=== PATIENT | female | born 1980 | race Caucasian/White ===

== ENCOUNTER → 2019-10-24 07:48 | Outpatient (CLI) | payer OTHER, SELFPAY ==
--- NOTE | ~2019-10-24 | US_ITS ---
EXAMINATION: US right upper quadrant DATE: 10/24/2019 08:12 INDICATION: Right upper quadrant abdominal pain. TECHNIQUE: Multiple grayscale and Doppler ultrasound images of the abdomen were obtained. COMPARISON: None FINDINGS: The visualized portions of the head, body, and tail of the pancreas are normal. The liver i s normal without focal lesion. No liver surface nodularity. There is normal flow in main portal vein. The gallbladder is normal in size. No gallstones or gallbladder wall thickening. There was no sonogr aphic Mauricio sign. The common duct is normal and measures 3 mm. IMPRESSION: 1. Normal right upper quadrant ultrasound. Reviewed, dictated and finalized at location A.
== END ==
PROVIDERS: PCP Physician Assistant; Visit Provider Physician Assistant
DX: R10.11 Right upper quadrant pain (principal)
CPT/HCPCS: 76705

== ENCOUNTER 2019-11-26 09:58 | Emergency (ER) | payer OTHER, SELFPAY ==
--- NOTE | ~2019-11-26 | CT_ITS ---
EXAMINATION: CT abdomen pelvis w con DATE: 11/26/2019 10:58 INDICATION: Lower right abdominal pain TECHNIQUE: Computed tomography (CT) of the abdomen and pelvis was performed with 100 mL Omnipaque-350 intravenous contrast. Automated exposure control and iterative reconstruction technique were employe d. The dose-length product was 311.79 mGy-cm. COMPARISON: None FINDINGS: Lung bases are clear. Heart size is normal. No pericardial or pleural effusion. Liver, gallbladder, s pleen, pancreas, bilateral adrenal glands and kidneys are normal. Small bowel and appendix are normal . There is wall thickening and inflammatory stranding centered about a diverticulum in the mid sigmoi d colon consistent with diverticulitis. No abscess or free intraperitoneal gas or fluid. Bladder, ant everted uterus and bilateral adnexa are unremarkable. No pathologically enlarged abdominal or pelvic lymphadenopathy. Mild lower lumbar dextrocurvature with mild spondylosis. IMPRESSION: 1. Radiographically uncomplicated sigmoid diverticulitis. Reviewed, dictated and finalized at location A.
[2019-11-26 10:10] VITALS: BP 130/81; PULSE 90; RESP 16; TEMP 36.7; O2SAT 98
[2019-11-26 10:31] LABS: Basophils Percent Auto 0.2 % (0.2-1.2); Eosinophils Percent Auto 0.3 % (0-4.4); Hematocrit 41.4 % (37.0-47.0); Hemoglobin 14.7 g/dL (12.0-15.0); Immature Granulocyte Absolute 0.03 K/mm3 (0.00-0.031); Immature Granulocyte Percent A 0.3 % (0-0.5); Lymphocytes Absolute Auto 0.91 K/mm3 (0.9-3.2); Lymphocytes Percent Auto 8.8 % (18.3-44.2); Mean Corpuscular HGB Conc 35.5 g/dl (32-36); Mean Corpuscular Volume 95.8 fl (80-100); Mean Platelet Volume 10.4 fl (7.4-10.4); Monocytes Absolute Auto 0.4 K/mm3 (0.1-0.6); Monocytes Percent Auto 3.9 % (2.6-8.5); Neutrophils Percent Auto 86.5 % (45.5-73.1); Platelet Count Result 193 k/mm3 (150-375); Red Blood Count 4.32 M/mm3 (4.2-5.4); Red Cell Distribution Width 12.2 % (11.5-14.5); White Blood Count 10.4 K/mm3 (4.5-10.0)
--- NOTE | 2019-11-26 10:34 | ED.ABDPAIN ---
HPI - Abdominal Pain General Chief Complaint: Abdominal Pain Stated Complaint: abd pain Time Seen by Provider: 11/26/19 10:08 Source: patient Mode of arrival: ambulatory Limitations: no limitations History of Present Illness HPI narrative: This is a 39-year-old female that presents the emergency department for right lower quadrant abdominal pain x2 days. Reports started having vague right sided abdominal pain on Tuesday night associated with some nausea. Reports on Tuesday she played in a golf tournament and pain was exacerbated by walking around and getting in and out of the cart. Reports pain continued today which prompted her to be seen. Denies fever, vomiting, diarrhea, dysuria, hematuria. Related Data Home Medications Medication Instructions Recorded Confirmed Control 11/26/19 Allergies Allergy/AdvReac Type Severity Reaction Status Date / Time No Known Allergies Allergy Verified 11/26/19 10:13 Review of Systems Review of Systems: Narrative: CONSTITUTIONAL: Denies fever GASTROINTESTINAL: Reports abdominal pain, nausea. Denies vomiting, or diarrhea. GENITOURINARY: Denies dysuria or hematuria. SKIN: Denies rash MUSCULOSKELETAL: Denies back pain All systems reviewed & are unremarkable except as noted in HPI and below PMFSH Past Medical History Medical History (Updated 11/26/19 @ 11:10 by Leyda Mascorro PA-C) No active medical problems Surgical History Surgical History (Updated 11/26/19 @ 10:41 by Leyda Mascorro PA-C) History of Social History Social History (Updated 11/26/19 @ 10:41 by Leyda Mascorro PA-C) Substance use: never Gender identity (if verbalized by the patient): Female Exam Narrative: Exam Narrative: GENERAL: Well-appearing, well-nourished, and in no acute distress. HEAD: Normocephalic, atraumatic. EYES: EOMI. CHEST: Clear to auscultation. No respiratory distress. No wheezes rales or rhonchi HEART: Regular rate and rhythm. No murmur heard. Normal peripheral pulses. ABDOMEN: Soft, nondistended, normal active bowel sounds. Tender to palpation of the RLQ, without guarding. No CVA tenderness EXTREMITIES: Normal range of motion. No edema. SKIN: Warm, dry, no rash. NEURO: No focal deficits. Alert and oriented x3. PSYCH: Normal mood and affect Course Vital Signs Vital signs: Vital Signs Temperature 98.1 F 11/26/19 10:10 Pulse Rate 90 11/26/19 10:10 Respiratory Rate 16 11/26/19 10:10 Blood Pressure 130/81 11/26/19 10:10 Pulse Oximetry 98 11/26/19 10:10 Temperature 98.1 F 11/26/19 10:10 Pulse Rate 95 11/26/19 10:35 Respiratory Rate 18 11/26/19 10:35 Blood Pressure 130/81 11/26/19 10:10 Pulse Oximetry 98 11/26/19 10:35 MDM - Abdominal Pain MDM Narrative Medical decision making narrative: Patient presents to the emergency department for lower abdominal pain x2 days. She is afebrile and nontoxic-appearing. CBC with mild leukocytosis to 10.4 with left shift. Metabolic panel without concerning changes. UA without evidence of infection. CT scan of the abdomen and pelvis shows uncomplicated sigmoid diverticulitis. Patient is stable and tolerating p.o. intake without any vomiting. [place] appropriate for further outpatient evaluation. She will be started on oral antibiotics. She is to follow-up with primary care doctor. She was given warnings to return to the ER Lab Data Attestation: I reviewed the patient's lab results. Result diagrams: 11/26/19 10:10 11/26/19 10:10 Labs: Lab Results 11/26/19 11/26/19 11/26/19 Range/Units 10:10 10:10 10:10 WBC 10.4 H (4.5-10.0) K/mm3 RBC 4.32 (4.2-5.4) M/mm3 Hgb 14.7 (12.0-15.0) g/dL Hct 41.4 (37.0-47.0) % MCV 95.8 (80-100) fl MCH 34.0 (26-34) pg MCHC 35.5 (32-36) g/dl RDW 12.2 (11.5-14.5) % Plt Count 193 (150-375) k/mm3 MPV 10.4 (7.4-10.4) fl Immature Gran % (Auto) 0.3 (0-0.5) % Neut % (Auto
[2019-11-26 10:35] VITALS: PULSE 95; RESP 18; O2SAT 98
[2019-11-26 10:35] LABS: Add Urine Microscopic? YES; Appearance Urine Clear (Clear); Bacteria Urine Trace /hpf; Bilirubin Urine Negative (Negative); Blood Urine Negative (Negative); Color Urine Yellow (Yellow); Glucose Urine UA Negative (Negative); Ketones Urine Negative (Negative); Leukocyte Esterase Ur 1+ LEU/UL (Negative); Mucus Urine Rare /lpf; Nitrate Urine Negative (Negative); Protein Urine Negative (Negative); Specific Grav Ur 1.019 (1.001-1.035); Squamous Epithelial Cell Urine Few /hpf (Few); Urobilinogen Urine Negative mg/dL (<2.0); WBC Urine 0-3 /hpf
[2019-11-26 10:43] LABS: Alanine Aminotransferase 14 U/L (4-35); Albumin Level 4.2 g/dL (3.5-5.1); Alkaline Phosphatase 46 U/L (38-126); Anion Gap 7 mmol/L (8-16); Aspartate Amino Transferase 20 U/L (14-36); Bilirubin,Total 0.9 mg/dL (0.2-1.3); Blood Urea Nitrogen 14 mg/dL (7-17); Calcium 8.6 mg/dL (8.4-10.2); Carbon Dioxide 26 mmol/L (22-30); Chloride 104 mmol/L (98-107); Estimated CRCL calculation 71 ml/min; Estimated Glomerular Filt Rate > 60; Glucose 121 mg/dL (65-105); Lipase 42 U/L (23-300); Potassium 3.7 mmol/L (3.4-5.0); Sodium 137 mmol/L (137-145)
--- NOTE | 2019-11-26 10:59 | PC.NURSE ---
report given to bird dye at this time, pt just returning from ct at this time. she has assumed pt care.
[2019-11-26 11:29] VITALS: BP 122/78; PULSE 78; RESP 18; O2SAT 99
== END 2019-11-26 11:30 | disposition home or self-care (01) ==
PROVIDERS: Emergency Provider Emergency Medicine; PCP Physician Assistant
DX: K57.32 Diverticulitis of large intestine without perforation or abscess without bleeding (principal)
CPT/HCPCS: 36415; 74177; 80053; 81001; 81025; 83690; 85025; 99284; Q9967

== ENCOUNTER → 2020-08-27 15:26 | Outpatient (CLI) | payer OTHER, SELFPAY ==
--- NOTE | ~2020-08-27 | MM_ITS ---
EXAMINATION: MM screening bill BI w thomas HISTORY: Screening mammogram TECHNIQUE: Craniocaudal and mediolateral oblique 3-D tomosynthesis images were obtained and synthetic 2-D images were generated. CAD analysis was submitted and interpreted. COMPARISON: No prior mammogram is available for comparison at this institution. BREAST PARENCHYMAL COMPOSITION: The breasts are heterogeneously dense, which may obscure small masses . FINDINGS: There is no evidence of suspicious mass, calcification, or architectural distortion to sugg est malignancy in either breast. There has been no suspicious interval change. IMPRESSION: 1. No mammographic evidence of malignancy. 2. Recommend routine screening mammography in one year. BI-RADS Category 1: Negative Reviewed, dictated and finalized at location A.
== END ==
PROVIDERS: PCP Physician Assistant; Visit Provider Obstetrics & Gynecology
DX: Z12.31 Encounter for screening mammogram for malignant neoplasm of breast (principal)
CPT/HCPCS: 77063; 77067

== ENCOUNTER → 2021-09-02 16:45 | Outpatient (CLI) | payer OTHER, SELFPAY ==
--- NOTE | ~2021-09-02 | MM_ITS ---
EXAMINATION: MM screening bill BI w thomas HISTORY: Screening mammogram TECHNIQUE: Craniocaudal and mediolateral oblique 3-D tomosynthesis images were obtained and synthetic 2-D images were generated. CAD analysis was submitted and interpreted. COMPARISON: No prior mammogram is available for comparison at this institution. BREAST PARENCHYMAL COMPOSITION: 08/27/2020 bilateral screening mammogram FINDINGS: There is no evidence of suspicious mass, calcification, or architectural distortion to sugg est malignancy in either breast. There has been no suspicious interval change. IMPRESSION: 1. No mammographic evidence of malignancy. 2. Recommend routine screening mammography in one year. BI-RADS Category 1: Negative Reviewed, dictated and finalized at location A.
== END ==
PROVIDERS: PCP Physician Assistant; Visit Provider Obstetrics & Gynecology
DX: Z12.31 Encounter for screening mammogram for malignant neoplasm of breast (principal)
CPT/HCPCS: 77063; 77067

== ENCOUNTER → 2022-08-25 07:44 | Outpatient (CLI) | payer OTHER, SELFPAY ==
--- NOTE | ~2022-08-25 | MMUS_ITS ---
EXAMINATION: MM diagnostic bill BI w thomas, US breast RT limited HISTORY: Right axillary swelling TECHNIQUE: Craniocaudal, mediolateral, and mediolateral oblique 3-D tomosynthesis images of the breas ts were performed and synthetic 2-D images were generated. CAD analysis was submitted and interpreted . High resolution limited right breast ultrasound was performed. COMPARISON: 09/02/2021, 08/27/2020 BREAST PARENCHYMAL COMPOSITION: The breasts are heterogeneously dense, which may obscure small masses . FINDINGS: MAMMOGRAPHIC FINDINGS: No suspicious mass, calcification, or architectural distortion are identified in either breast to sug gest malignancy. There has been no suspicious interval change. No mammographic correlate is identifie d for the reported right axillary swelling. ULTRASOUND: There is no evidence of focal abnormal solid or cystic mass in the vicinity of the patient's right ax illary swelling. IMPRESSION: 1. No specific mammographic or sonographic correlate is identified for the patient's reported right a xillary swelling Further evaluation at this time should be based on clinical assessment. Continued fo llow-up physical examination is recommended. 2. Recommend routine screening mammography in one year. BI-RADS Category 1: Negative Reviewed, dictated and finalized at location A. IMPRESSION: 1. No specific mammographic or sonographic correlate is identified for the meagan ent's reported right axillary swelling Further evaluation at this time should b e based on clinical assessment. Continued follow-up physical examination is rec ommended. 2. Recommend routine screening mammography in one year. BI-RADS Category 1: Negative
== END ==
PROVIDERS: PCP Physician Assistant; Visit Provider Obstetrics & Gynecology
DX: N64.4 Mastodynia (principal)
CPT/HCPCS: 76642; 77062; 77066; G0279

== ENCOUNTER 2024-03-05 12:03 | Outpatient (CLI) | payer OTHER, SELFPAY ==
--- NOTE | ~2024-03-05 | MM_ITS ---
EXAMINATION: MM screening bill BI w thomas HISTORY: Screening TECHNIQUE: Craniocaudal and mediolateral oblique 3-D tomosynthesis images were obtained and synthetic 2-D images were generated. CAD analysis was submitted and interpreted. COMPARISON: Comparison to multiple prior studies sequentially, with oldest reviewed study dated 08/27. BREAST PARENCHYMAL COMPOSITION: Dense: The breasts are heterogeneously dense, which may obscure small masses FINDINGS: There is no evidence of suspicious mass, calcification, or architectural distortion to sugg est malignancy in either breast. There has been no suspicious interval change. IMPRESSION: 1. No mammographic evidence of malignancy. 2. Recommend routine screening mammography in one year. BI-RADS Category 1: Negative Reviewed, dictated and finalized at location B. 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
== END 2024-03-05 12:04 | disposition home or self-care (01) ==
LOC: MICIMG 12:04
PROVIDERS: PCP Obstetrics & Gynecology; Visit Provider Obstetrics & Gynecology
DX: Z12.31 Encounter for screening mammogram for malignant neoplasm of breast (principal)
CPT/HCPCS: 77063; 77067

== ENCOUNTER 2024-10-12 00:34 | Day surgery (SDC) | payer OTHER, SELFPAY ==
--- NOTE | 2024-10-08 11:15 | PC.NURSE ---
Report to the Outpatient Waiting Room, entrance under the green pavilion located off [facility], at time __10 AM on date _10/12/24 . Planned Procedure Time: __1200 NOON .? Time changes happen often and if your time is changed the preop area will call you the afternoon before. - You and your visitor will be asked to self-screen and do not enter if you have any COVID symptoms. Please call surgeon if you need to reschedule. - A mask is optional within the hospital at this time. Patients may have clear liquids (water, carbonated beverages, clear teas, apple juice) until 3 hours prior to surgery ( 9AM) with a maximum of 20 ounces. - No food from midnight until time of surgery and no smoking, or chewing tobacco (or any form of nicotine). No chewing gum, candy or mints. - Take only the following medications with a SIP of water on the morning of surgery: NONE DO NOT STOP ANY OF YOUR OTHER PRESCRIPTION MEDICATIONS PRIOR TO SURGERY EXCEPT THE FOLLOWING Hold all vitamins and supplements for 3 days per anesthesiologist. Medications to discontinue per physician NONE Please no make-up, nail amharic, hairspray, perfume, deodorant, or body powder the day of surgery.? No jewelry (including any body piercings) or valuables the day of surgery, leave them at home.? Please take a shower or bath the night before, or the morning of, surgery with an antibacterial soap.? Wear comfortable, loose fitting clothing.? Children are encouraged to wear pajamas. - Jewelry must be removed prior to entering the operating room.? Rings and piercings that are not removed may be cut off. - The hospital will not accept responsibility for valuables.? - Please leave all valuables, including medications, at home the day of surgery. If you are going home after surgery, a licensed driver material handler must drive you home.? - NO public transportation without another adult if you receive anesthesia. - We recommend that an adult stay with you for 24 hours following discharge. - We also recommend that you do not drive, make important decision, drink alcoholic beverages, or take any drugs that were not prescribed by your health care provider for at least 24 hours after your discharge time. For Pediatric surgeries, we recommend two adults accompany the child home. Follow any additional instructions given to you from your surgeon. Telephone instructions given to ____PATIENT and asked if any additional questions and then verbalized understanding. Patient advised to call surgeon office or pre surgery nurse liaison [phone] if any additional questions.
[2024-10-08 11:19] VITALS: BMI 28.3
--- NOTE | 2024-10-11 07:39 | PM.IMHP ---
H&P: HPI History of Present Illness Date/Time: 10/11/24 07:39 Chief Complaint: AUB Narrative: Echo is a 44yo [id number], who presents for AUB. She had an EMB due to persistent AUB 06/2024. She has been on BC forever, but started having breast issues in August 2023 and stopped the BC (was most recently on ed, previously loestrin). She has also previously been on Prozac for PMS and wasn't sure if that was helping so she also stopped that. She had a very heavy cycle in Feb 2023 (son was having heart surgery) and we then started Ana Maria. Her cycles have been regular, slightly heavy one day, but nothing like in Feb. But started have BTB this month (06/2024); commonly her period ends for a couple days, then when she's on the new pill pack, will spot for a couple more days. But again in September 2024 the AUB restarted; has tried doing pills q12h which helped initially but then the bleeding just became severe this weekend with clots. Review of Systems Constitutional: Constitutional: Denies chills, Denies fever(s) and Denies headache(s) Eyes: Eyes: Denies change in vision ENT: Denies dizziness and Denies headache(s) Cardiovascular: Cardiovascular: Denies chest pain and Denies dyspnea Respiratory: Respiratory: Denies cough and Denies dyspnea Gastrointestinal: Gastrointestinal: Denies abdominal pain and Denies change in stool character Genitourinary: Genitourinary: Reports abnormal menses, Reports menorrhagia, Reports dysmenorrhea, Denies pelvic pain, Denies vaginal discharge, Denies vaginal odor and Denies vaginal pruritus Neurologic: Denies dizziness and Denies headache(s) Psychiatric: Psychiatric: Denies anxiety and Denies depression [facility] Past Medical History Medical History (Updated 10/11/24 @ 07:40 by Zena Cabral MD) Family attended structured diabetes education program No active medical problems Surgical History Surgical History H/O bilateral salpingectomy History of Family History Family History Mother Ovarian cancer Other Acute myocardial infarction Dementia Heart disease Hypertension Social History Social History Smoking status: Never smoker Alcohol intake: current Drinks per week: 2 Alcohol use details: socially Substance use: never Substance use type: does not use Lack of Transportation: No Lack of Food: Never True Current Housing: I Have Housing Concerned About Future Housing: No Difficulty Paying Gas/Electric Bills: No Difficulty Paying for Meds: No Currently Unemployed: No Education: Master's Degree or Higher Difficulty w/ Childcare or Family Care: No Living arrangements: with family Occupation/Education: occupation 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 Gender identity (if verbalized by the patient): Female Sexual Orientation (if Verbalized by the Patient): Straight or Heterosexual Spiritual care concerns: No Meds Home Medications and Allergies Home Medications ?Medication ?Instructions ?Recorded ?Confirmed ?Type norethindrone acetate 1 mg-ethinyl 1 tablet PO DAILY #84 tabs 06/20/24 10/08/24 Rx estradiol 20 mcg tablet (Junel) fluoxetine 10 mg capsule 10 mg PO HS 10/08/24 10/08/24 History multivitamin 1 tablet PO DAILY 10/08/24 10/08/24 History Allergies Allergy/AdvReac Type Severity Reaction Status Date / Time No Known Allergies Allergy Verified 10/08/24 11:08 Exam Const: General: cooperative, healthy appearing, comfortable and no acute distress Orientation/consciousness: patient oriented x3 Resp: Effort & Inspection: normal respiratory effort Cardio: Rate: regular rate GI: Inspection: normal to inspection GI Palp: No abdominal tenderness and Yes Soft to palpation : Other: deferred to OR Skin: General skin exam: normal color Neuro: General: patient oriented x3 Extrem: General: normal to inspection Psych: Appearance: grossly normal Affect: normal affect Attitude: cooperative Assessment and Plan Assessment and plan (1) Abnormal uterine bleeding (AUB): Code(s): N93.9 - Abnormal uterine and vaginal bleeding, unspecified Status: Acute 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
--- OUTSIDE RECORDS SUMMARY | 2024-10-12 00:37 | XMS_ITS | Encounter Summary ---
Author Organization [facility] Address [address] [place] [address] Care Team Providers Care Health Education Specialist Name Role Phone Unavailable Primary Care Provider Unavailabl e Encounter Details Date Type Department Care Team (Latest Contact Info) Description 08/12/2006 Inpatient Historical HIS PATIENT IN A BED Amanda Scott MD [address] [facility] [address] [place] [address] Normal Delivery (Primary Dx) Social History Tobacco Use Types Packs/Day Years Used Date Smoking Tobacco: Never Assessed Comments Unknown Sex and Gender Information Value Date Recorded Sex Assigned at Not on file Legal Sex Female 3:42 AM [employer] Gender Identity Not on file Sexual Orientation Not on file documented as of this encounter Plan of Treatment Not on file documented as of this encounter Visit Diagnoses Diagnosis Normal delivery- Primary documented in this encounter
--- OUTSIDE RECORDS SUMMARY | 2024-10-12 00:37 | XMS_ITS | Data Portability ---
[facility] Address [address] [place] [address] Assessment No assessment recorded. Plan of Treatment Reminders Order Date Submit Date Provider Last Modified By Organization Details Last Modified Time Details Appointments None recorded. Lab TSH + free T4, serum 024 [facility], [address], [place], [address], 4 03:36:51 lipid panel, serum 024 024 [facility], [address], [place], [address], 4 03:36:50 CMP, serum or plasma 024 [facility], [address], [place], [address], 4 03:36:51 CBC w/ auto diff 024 [facility], [address], [place], [address], 4 03:36:53 vitamin B12 + folate, serum or blood 024 024 [facility], [address], [place], [address], 4 03:36:52 HbA1c (hemoglob in A1c), blood 024 024 [facility], [address], [place], [address], 03:36:52 Referral None recorded. Procedures None recorded. Surgeries None recorded. Imaging None recorded. Medication Orders None recorded. Patient TargetsNo targets recorded. Patient InstructionsNo instructions recorded. Reason for Referral None Reported. Results Created Date Observation Date Name Description Value Unit Range Abnormal Flag Note LastModifiedBy Organization Detail LastModifiedTime 11/30/19 24 12/01/2023 LIPID PANEL W/ CHOL/ HDL RATIO cholesterol, total 172 mg/dL 100-19 9 Not Available [facility] ([facility]) [address], [place], [address], 12/01/2023 03:36:50 11/30/19 24 12/01/2023 LIPID PANEL W/ CHOL/ HDL RATIO triglyceride s 139 mg/dL 0-149 Not Available [facility] ([facility]) [address] [place], [address], 12/01/2023 03:36:50 11/30/19 24 12/01/2023 LIPID PANEL W/ CHOL/ HDL RATIO HDL cholesterol 67 mg/dL >39 Not Available [facility] ([facility]) [address] [place], [address], 12/01/2023 03:36:50 11/30/19 24 12/01/2023 LIPID PANEL W/ CHOL/ HDL RATIO VLDL cholesterol eleazar 24 mg/dL 5-40 Not Available [facility] ([facility]) [address] [place], [address], 12/01/2023 03:36:50 11/30/19 24 12/01/2023 LIPID PANEL W/ CHOL/ HDL RATIO LDL chol calc ([facility]) 81 mg/dL 0-99 Not Available [facility] ([facility]) [address] [place], [address], 12/01/2023 03:36:50 11/30/19 24 12/01/2023 LIPID PANEL W/ CHOL/ HDL RATIO T. chol/HDL ratio 2.6 ratio 0.0-4. 4 T. Chol/ HDL Ratio Men Women 1/2 Avg.R isk 3.4 3.3 Avg.R isk 5.0 4.4 2X Avg.R isk 9.6 7.1 3X Avg.R isk 23.4 11.0 Not Available [facility] ([facility]) [address] [place], [address], 12/01/2023 03:36:50 11/30/19 24 12/01/2023 TSH+F REE T4 TSH 1.910 uIU/m L 0.450- 4.500 Not Available [facility] ([facility]) [address] [place], [address], 12/01/2023 03:36:51 11/30/19 24 12/01/2023 TSH+F REE T4 T4,free(dire ct) 1.14 NG/dL 0.82-1 .77 Not Available [facility] ([facility]) [address] [place], [address], 12/01/2023 03:36:51 11/30/19 24 12/01/2023 COMP. METAB OLIC PANEL (14) glucose 92 mg/dL 70-99 Not Available [facility] ([facility]) [address] [place], [address], 12/01/2023 03:36:51 11/30/19 24 12/01/2023 COMP. METAB OLIC PANEL (14) BUN 16 mg/dL 6-24 Not Available [facility] ([facility]) [address] [place], [address], 12/01/2023 03:36:51 11/30/19 24 12/01/2023 COMP. METAB OLIC PANEL (14) creatinine 0.87 mg/dL 0.57-1 .00 Not Available [facility] ([facility]) [address], [place], [address], 12/01/2023 03:36:51 11/30/19 24 12/01/2023 COMP. METAB OLIC PANEL (14) eGFR 85 mL/mi n/1.7 3 >59 Not Available [facility] ([facility]) [address], [place], [address], 12/01/2023 03:36:51 11/30/19 24 12/01/2023 COMP. METAB OLIC PANEL (14) BUN/creatini ne ratio 18 9-23 Not Available [facility] ([facility]) [address], [place], [address], 12/01/2023 03:36:51 11/30/19 24 12/01/2023 COMP. METAB OLIC PANEL (14) sodium 137 mmol/ L 134-14 4 Not Available [facility] ([facility]) [address], [place], [address], 12/01/2023 03:36:51 11/30/19 24 12/01/2023 COMP. METAB OLIC PANEL (14) potassium 4.3 mmol/ L 3.5-5. 2 Not Available [facility] ([facility]) [address] [facility] [facility], [place], [address], 12/01/2023 03:36:51 11/30/19 24 12/01/2023 COMP. METAB OLIC PANEL (14) chloride 105 mmol/ L 96-106 Not Available [facility] ([place] [facility]) [address] [place], [address], 12/01/2023 03:36:51 11/30/19 24 12/01/2023 COMP. METAB OLIC PANEL (14) carbon dioxide, total 18 mmol/ L 20-29 below low normal Not Available [facility] ([place] [facility]) [address] [facility] [address], [place], [address], 12/01/2023 03:36:51 11/30/19 24 12/01/2023 COMP. METAB OLIC PANEL (14) calcium 8.7 mg/dL 8.7-10 .2 Not Available [facility] ([facility]) [address] [place], [address], 12/01/2023 03:36:51 11/30/19 24 12/01/2023 COMP. METAB OLIC PANEL (14) protein, total 6.4 g/dL 6.0-8. 5 Not Available [facility] ([facility]) [address] [place], [address], 12/01/2023 03:36:51 11/30/19 24 12/01/2023 COMP. METAB OLIC PANEL (14) albumin 4.1 g/dL 3.9-4. 9 Not Available [facility] ([facility]) [address] [place], [address], 12/01/2023 03:36:51 11/30/19 24 12/01/2023 COMP. METAB OLIC PANEL (14) globulin, total 2.3 g/dL 1.5-4. 5 Not Available [facility] ([facility]) [address] [facility] [facility] [place], [address], 12/01/2023 03:36:51 11/30/19 24 12/01/2023 COMP. METAB OLIC PANEL (14) bilirubin, total 0.4 mg/dL 0.0-1. 2 Not Available [facility] ([facility]) [address] [place], [address], 12/01/2023 03:36:51 11/30/19 24 12/01/2023 COMP. METAB OLIC PANEL (14) alkaline phosphatase 41 IU/L 44-121 below low normal Not Available [facility] ([facility]) [address] [place], [address], 12/01/2023 03:36:51 11/30/19 24 12/01/2023 COMP. METAB OLIC PANEL (14) AST (SGOT) 17 IU/L 0-40 Not Available [facility] ([facility]) [address] [place], [address], 12/01/2023 03:36:51 11/30/19 24 12/01/2023 COMP. METAB OLIC PANEL (14) ALT (SGPT) 14 IU/L 0-32 Not Available [facility] ([facility]) [address] [facility], [place], [address], 12/01/2023 03:36:51 11/30/19 24 12/01/2023 VITAM IN B12 AND FOLAT E vitamin B12 338 pg/mL 232-12 45 Not Available [facility] ([facility]) [address] [facility] [address], [place], [address], 12/01/2023 03:36:52 11/30/19 24 12/01/2023 VITAM IN B12 AND FOLAT E folate (folic acid), serum 13.8 NG/mL >3.0 A serum folat e arian ntrat ion of less than 3.1 ng/mL is consi dered to repre sent clini eleazar defic iency . Not Available [facility] ([facility]) [address] [facility], [place], [address], 12/01/2023 03:36:52 11/30/19 24 12/01/2023 HEMOG LOBIN A1C hemoglobin A1C 4.7 % 4.8-5. 6 below low normal Predi abete s: 5.7 - 6.4 Diabe melodie: >6.4 Glyce raul contr ol for adult s with diabe melodie: <7.0 Not Available [facility] ([facility]) [address] [place], [address], 12/01/2023 03:36:52 11/30/19 24 11/30/2023 CBC WITH DIFFE RENTI AL/PL ATELE T WBC 4.4 x10e3 /uL 3.4-10 .8 Not Available [facility] ([facility]) [address] [place], [address], 12/01/2023 03:36:53 11/30/19 24 11/30/2023 CBC WITH DIFFE RENTI AL/PL ATELE T RBC 4.33 x10e6 /uL 3.77-5 .28 Not Available [facility] ([facility]) [address] [place], [address], 12/01/2023 03:36:53 11/30/19 24 11/30/2023 CBC WITH DIFFE RENTI AL/PL ATELE T hemoglobin 14.6 g/dL 11.1-1 5.9 Not Available [facility] ([facility]) [address] [place], [address], 12/01/2023 03:36:53 11/30/19 24 11/30/2023 CBC WITH DIFFE RENTI AL/PL ATELE T hematocrit 43.7 % 34.0-4 6.6 Not Available [facility] ([facility]) [address] [place], [address], 12/01/2023 03:36:53 11/30/19 24 11/30/2023 CBC WITH DIFFE RENTI AL/PL ATELE T MCV 101 fL 79-97 above high normal Not Available [facility] ([facility]) [address] [place], [address], 12/01/2023 03:36:53 11/30/19 24 11/30/2023 CBC WITH DIFFE RENTI AL/PL ATELE T MCH 33.7 pg 26.6-3 3.0 above high normal Not Available [facility] ([facility]) [address] [place], [address], 12/01/2023 03:36:53 11/30/19 24 11/30/2023 CBC WITH DIFFE RENTI AL/PL ATELE T MCHC 33.4 g/dL 31.5-3 5.7 Not Available [facility] ([facility]) [address] [facility] [address], [place], [address], 12/01/2023 03:36:53 11/30/19 24 11/30/2023 CBC WITH DIFFE RENTI AL/PL ATELE T RDW 11.5 % 11.7-1 5.4 below low normal Not Available [facility] ([facility]) [address] [facility] [address], [place], [address], 12/01/2023 03:36:53 11/30/19 24 11/30/2023 CBC WITH DIFFE RENTI AL/PL ATELE T platelets 221 x10e3 /uL 150-45 0 Not Available [facility] ([facility]) [address] [facility] [address], [place], [address], 12/01/2023 03:36:53 11/30/19 24 11/30/2023 CBC WITH DIFFE RENTI AL/PL ATELE T neutrophils 61 % notest ab. Not Available [facility] ([facility]) [address] [place], [address], 12/01/2023 03:36:53 11/30/19 24 11/30/2023 CBC WITH DIFFE RENTI AL/PL ATELE T lymphs 31 % notest ab. Not Available [facility] ([facility]) [address] [facility] [address], [place], [address], 12/01/2023 03:36:53 11/30/19 24 11/30/2023 CBC WITH DIFFE RENTI AL/PL ATELE T monocytes 5 % notest ab. Not Available [facility] ([facility]) [address] [place], [address], 12/01/2023 03:36:53 11/30/19 24 11/30/2023 CBC WITH DIFFE RENTI AL/PL ATELE T eos 2 % notest ab. Not Available [facility] ([facility]) [address], [place], [address], 12/01/2023 03:36:53 11/30/19 24 11/30/2023 CBC WITH DIFFE RENTI AL/PL ATELE T basos 1 % notest ab. Not Available [facility] ([facility]) [address] [facility] [address], [place], [address], 12/01/2023 03:36:53 11/30/19 24 11/30/2023 CBC WITH DIFFE RENTI AL/PL ATELE T neutrophils (absolute) 2.7 x10e3 /uL 1.4-7. 0 Not Available [facility] ([facility]) [address] [facility], [place], [address], 12/01/2023 03:36:53 11/30/19 24 11/30/2023 CBC WITH DIFFE RENTI AL/PL ATELE T lymphs (absolute) 1.4 x10e3 /uL 0.7-3. 1 Not Available [facility] ([facility]) [address] [facility] [address], [place], [address], 12/01/2023 03:36:53 11/30/19 24 11/30/2023 CBC WITH DIFFE RENTI AL/PL ATELE T monocytes(ab solute) 0.2 x10e3 /uL 0.1-0. 9 Not Available [facility] ([facility]) [address] [facility] [address], [place], [address], 12/01/2023 03:36:53 11/30/19 24 11/30/2023 CBC WITH DIFFE RENTI AL/PL ATELE T eos (absolute) 0.1 x10e3 /uL 0.0-0. 4 Not Available [facility] ([facility]) [address] [facility] [address], [place], [address], 12/01/2023 03:36:53 11/30/19 24 11/30/2023 CBC WITH DIFFE RENTI AL/PL ATELE T baso (absolute) 0.0 x10e3 /uL 0.0-0. 2 Not Available [facility] ([facility]) [address] [facility] [address], [place], [address], 12/01/2023 03:36:53 11/30/19 24 11/30/2023 CBC WITH DIFFE RENTI AL/PL ATELE T immature granulocytes 0 % notest ab. Not Available [facility] ([facility]) [address] [facility] [address], [place], [address], 12/01/2023 03:36:53 11/30/19 24 11/30/2023 CBC WITH DIFFE RENTI AL/PL ATELE T immature grans (abs) 0.0 x10e3 /uL 0.0-0. 1 Not Available [facility] ([facility]) [address] [facility] [address], [place], [address], 12/01/2023 03:36:53 Result Notes None recorded. Problems Name Problem SNOMED Code Status Onset Date Resolution Date Notes Provider Name and Address Organization Details Recorded Time Anxiety 60035301 Active 024 Deb oliveros [place] - [facility] 4 16:39:18 Body mass index 25-29 - overweight 130579924 Active 024 Deb oliveros [place] 4 16:50:02 Long-term drug therapy Active 024 KALA Worley Attn: Reyna kruse,[address] [facility], [place], [address], [place] 4 17:22:48 Problem Notes None recorded. Procedures Surgical History Date Name Laterality Status Provider Name and Address Organization Details Recorded Time Eye Surgery completed Deb Monge [place] 11/14/2023 17:50:30 Imaging Results None recorded. Procedure Notes None recorded. Medical Equipment None Reported. Allergies No known drug allergies Medications Name Sig Start Date Stop Date Status Note LastModified by Organization Details LastModified Time fluoxetine 10 mg capsule Take 1 capsule every day by oral route for 90 days. active Not Available Not Available No t Available Sprintec (28) 0.25 mg-0.035 mg tablet active Not Available Not Available Not Available 1.530 (28) 1.5 mg-30 mcg (21)/75 mg (7) tablet 11/13 completed Not Available Not Available Not Available Vitals Date Recorded Systolic And Diastolic Provider Name and Address Organization Details Last Updated DateTime 11/14/2023 118/80 mm[Hg] KALA Worley Attn: Accounting,[address] [place], [address], [facility] 11/14/2023 17:19:20 Date Recorded Body weight Body mass index (BMI) Body height Respiratory rate Heart rate Oxygen saturation Oxygen saturation in Arterial blood by Pulse oximetry Systolic And Diastolic Provider Name and Address Organization Details Last Updated DateTime 02711.1 7 g 28.3 kg/m2 162.56 cm 16 /min 70 /min 98 % 98 % 122/80 mm[Hg] Deb Monge [facility] 16:49:04 Social History Question Answer Notes LastModified by Organizat ion Details LastModified Time Tobacco Smoking Status Never Smoker Deb Monge null, [facility] 11/14/2023 16:47:13 Do You Have An Advance Directive? No [email or web address] Information n ot available 11/14/2023 Are You Blind Or Do You Have Difficulty Seeing? No [email or web address] Information n ot available 11/14/2023 What Is Your Level Of Caffeine Consumption? Moderate [email or web address] Information not available 11/14/2023 In The 14 Days Before Symptom Onset, Have You Had Close Contact With A Laboratory-confirm ed COVID-19 While That Case Was Ill? No [email or web address] Information n ot available 11/14/2023 In The 14 Days Before Symptom Onset, Have You Had Close Contact With A Person Who Is Under Investigation For COVID-19 While That Person Was Ill? No [email or web address] Information not available 11/14/2023 Have You Been To An Area Known To Be High Risk For COVID-19? No [email or web address] Information not available 11/14/2023 Are You Deaf Or Do You Have Serious Difficulty Hearing? No [email or web address] Information not available 11/14/2023 What Type Of Diet Are You Following? REGULAR Information n ot available 11/14/2023 Are There Any Guns Present In Your Home? Yes [email or web address] Information not available 11/14/2023 What Was The Date Of Your Most Recent Tobacco Screening? 11/14/2023 [email or web address] Information not available 11/14/2023 What Is Your Relationship Status? Information not available 11/14/2023 Do You Use Your Seat Belt Or Car Seat Routinely? Yes [email or web address] Information not available 11/14/2023 Do You Have Smoke And Carbon Monoxide Detectors In Your Home? Yes [email or web address] Information not available 11/14/2023 Do You Use Sunscreen Routinely? Yes [email or web address] Information not available 11/14/2023 Has Tobacco Cessation Counseling Been Provided? Yes [email or web address] Information not available 11/14/2023 On What Date Was Tobacco Cessation Counseling Provided? 11/14/2023 [email or web address] Information not available 11/14/2023 Sex: Female Functional Status Question Answer Note LastModified by Organizat ion Details LastModified Time Do you use any illicit or recreational drugs? No [email or web address] Information not available 11/14/2023 Do you or have you ever used any other forms of tobacco or nicotine? No [email or web address] Information not available 11/14/2023 What is your level of alcohol consumption? Occasional [email or web address] Information not available 11/14/2023 Are you able to care for yourself? Yes [email or web address] Information n ot available 11/14/2023 What is your exercise level? Moderate Information not available 11/14/2023 Mental Status None recorded. Family History Relationship Description Onset Age of this Age Resolved Age Notes LastModified by Organization Details LastModified Time Mother Malignant neoplasm of ovary [email or web address] Not available 11/13 16:46:54 Father Hypertensive disorder Not available 11/13 17:50:42 Father Heart disease [email or web address] Not available 11/13 17:50:48 Medical History Condition Response Anxiety Disorder Y Headaches Y Gynecological HistoryNo gynecological history recorded. Obstetrics History GPAL:G 0 P 0 0 0 0 Past Encounters Encounter ID Performer Location Encounter Start Date Encounter Closed Date Diagnosis/Indication Diagnosis SNOMED-CT Code Diagnosis ICD10 Code Diagnosis Note [id number] Bernard Dsouza MD [facility] - [facility] Barker [address] [place] [address] 11/14/2023 16:36:54 11/14/2023 17:48:17 Body mass index 25-29 - overweight 263828652 Z68.28 BMI is 28.3 Adult heal th examination 062475116 Z00.00 Annual wellness exam complete Anxiety 92797728 F41.9 on fluoxetine 10mg daily. Somewhat PMDD presentati on and this is managed by her gynecologi st. Diabetes m ellitus screening 369269667 Z13.1 Annual diabetes screening due Cholesterol screening 27 5180758 Z13.220 Fasting lipid panel due Long-term drug therapy 980828092 Z79.899 cmp, cbc and b12, folate labs are due Thyroid di sorder screening 296148539 Z13.29 Routine thyroid function labs are due Health Concerns Section Related Observation LastModified by Organization Detai ls LastModified Time None Recorded Concern Status LastModified by Organization Details LastModified Time None Recorded Advance Directives Directive N: Payers Insurance Date Sequence Insurance Name Policy Number Policy Brennan Covered Member ID Brennan Member ID Guarantor Name 12/06/2023 1 [facility] [id number] Echo Andrews [id number] Echo Andrews Notes Date Note Type Note Provider Name and Address Organization Details Recorded Time 11/14/2023 text/html Anxiety/Depressi onR eported bypatient.Severity: denies suicidal ideations; able to maintain relationships; does not interfere with activities of daily living Duration:symptoms lasting over 2 weeks Onset/Timing:still present Context:no major life stressors Associated Symptoms:denies homicidal ideations; no significant weight gain; no significant weight loss; no visual/auditory hallucinations; no delusions; no shortness of breath; mood good; no anxiety; no crying spells; no panic; no isolation; sleeping well; appetite good; energy good; no apathy; maintaining functionality Notes:Patient is on low-dose fluoxetine 10 mg daily that is managed by Dr. Cabral her resource specialist KALA Worley Attn: Accounting[address] [place], [address], [facility] 12/03/2023 17:23:36 OBGyn Episode No OBEpisode recorded.
--- OUTSIDE RECORDS SUMMARY | 2024-10-12 00:37 | XMS_ITS | Encounter Summary ---
Author Organization [facility] Address [address] [place] [address] Care Team Providers Care Bacteriologist Medical Name Role Phone Unavailable Primary Care Provider Unavailabl e Encounter Details Date Type Department Care Team (Late st Contact Info) Description 04/24/2008 Outpatient Historical HIS PATIENT IN A BED Amanda Scott MD [address] [facility] [address] [place] [address] Social History Tobacco Use Types Packs/Day Years Used Date Smoking Tobacco: Never Assessed Comments Unknown Sex and Gender Information Value Date Recorded Sex Assigned at Not on file Legal Sex Female 3:[address] MAGISTRATE Gender Identity Not on file Sexual Orientation Not on file documented as of this encounter Plan of Treatment Not on file documented as of this encounter Procedures Procedure Name Priority Date/Time Associated Diagnosis Comments URIC ACID Stat 04/24/2008 8:[address] MAGISTRATE AST Stat 04/24/2008 8:[address] MAGISTRATE LACTATE DEHYDROGENASE Stat 04/24/2008 8:[address] MAGISTRATE FIBRONECTIN Stat 04/24/2008 7:[address] MAGISTRATE CBC WITH DIFFERENTIAL Stat 04/24/2008 7:[address] MAGISTRATE URINALYSIS WITH REFLEX CULTURE Stat 04/24/2008 6:[address] MAGISTRATE URINALYSIS W/REFLEX MICROSCOPIC Stat 04/24/2008 6:[address] MAGISTRATE documented in this encounter Results * AST (04/24/2008 8:[address] MAGISTRATE) AST 26 12 - 32 U/L [facility] Blood specimen (specimen) 04/24/2008 8:[address] MAGISTRATE 04/24/2008 8:[address] MAGISTRATE us Amanda Scott MD CHEMISTRY ORDERABLES Final R esult Performing Organization Address [facility] Phone Number INTERFACE SYSTEM Refer to clinic/hospital department [facility] CLIA# [id number] [address] [place] [address] * URIC ACID (04/24/2008 8:[address] MAGISTRATE) URIC ACID 3.8 2.3 - 6.6 mg/dL [facility] Blood specimen (specimen) 04/24/2008 8:[address] MAGISTRATE 04/24/2008 8:[address] MAGISTRATE us Amanda Scott MD CHEMISTRY ORDERABLES Final R esult Performing Organization Address [facility] Phone Number INTERFACE SYSTEM Refer to clinic/hospital department [facility] CLIA# [id number] [address] [place] [address] * LACTATE DEHYDROGENASE (04/24/2008 8:[address] MAGISTRATE) LD (LACTATE DEHYDROGENASE) 187 135 - 214 U/L [facility] Blood specimen (specimen) 04/24/2008 8:[address] MAGISTRATE 04/24/2008 8:[address] MAGISTRATE us Amanda Scott MD CHEMISTRY ORDERABLES Final R esult Performing Organization Address [facility] Phone Number INTERFACE SYSTEM Refer to clinic/hospital department [facility] CLIA# [id number] [address] [place] [address] * FIBRONECTIN (04/24/2008 7:[address] MAGISTRATE) Pathologist [facility] FIBRONECTIN Negative Negative [facility] GESTATIONAL AGE 31.2 Weeks [facility] RESULT COMMENT, CHEMISTRY Results called to curt at 04/24/08 19:56 and read back verified. [facility] Vaginal 04/24/2008 7:[address] MAGISTRATE 04/24/2008 7:[address] MAGISTRATE us Amanda Scott MD BODY FLUIDS AND STOOLS Final Result INTERFACE SYSTEM Refer to clinic/hospital department [facility] CLIA# [id number] [address] [place] [address] * (ABNORMAL) CBC WITH DIFFERENTIAL (04/24/2008 7:[address] MAGISTRATE) Pathologist [facility] RDW 14.6(H) 11.5 - 14.5 % [facility] WBC 12.0(H) 4.0 - 9.8 K/uL [facility] MCH 35.1(H) 27.2 - 32.6 pg [facility] MPV 10.8 9.3 - 12.4 fL [facility] HEMATOCRIT 35.1(L) 35.5 - 44.0 % [facility] RDW-STDEV 51.5(H) 37.1 - 48.7 fL [facility] RBC 3.59(L) 3.90 - 4.90 M/uL [facility] MCHC 35.9(H) 31.5 - 35.5 % [facility] MCV 97.8 82.0 - 99.0 fL [facility] PLATELETS 103(L) 140 - 350 K/uL [facility] HEMOGLOBIN 12.6 11.8 - 14.8 g/dL [facility] LYMPHOCYTES 15(L) 16 - 45 % [facility] LYMPHOCYTE ABSOLUTE 1.80 0.70 - 4.50 K/uL [facility] BASOPHILS 0 0 - 2 % [facility] BASOPHILS ABSOLUTE 0.02 0.00 - 0.20 K/uL [facility] MONOCYTES 5 3 - 13 % [facility] MONOCYTE ABSOLUTE 0.65 0.10 - 1.30 K/uL [facility] NEUTROPHILS 78(H) 45 - 70 % [facility] NEUTROPHIL ABSOLUTE 9.40(H) 1.90 - 7.00 K/uL [facility] EOSINOPHILS 1 0 - 7 % [facility] EOSINOPHIL ABSOLUTE 0.12 0.00 - 0.70 K/uL [facility] Blood specimen (specimen) 04/24/2008 7:[address] MAGISTRATE 04/24/2008 7:[address] MAGISTRATE us Amanda Scott MD HEMATOLOGY ORDERABLES Edited INTERFACE SYSTEM Refer to clinic/hospital department [facility] CLIA# [id number] [address] [place] [address] * (ABNORMAL) URINALYSIS (04/24/2008 6:[address] MAGISTRATE) SPECIFIC GRAVITY UA 1.009 1.001 - 1.035 [facility] BLOOD UA Negative Negative [facility] GLUCOSE UA Negative Negative [facility] COLOR UA Yellow [facility] NITRITE UA Negative Negative [facility] UROBILINOGEN UA <1 <=1 mg/dL [facility] PH UA 5.5 5.0 - 8.0 [facility] KETONES UA 1+(A) Negative [facility] CLARITY UA Clear Clear [facility] PROTEIN UA Negative Negative [facility] BILIRUBIN UA Negative Negative [facility] LEUKOCYTE ESTERASE UA Negative Negative [facility] 04/24/2008 6:[address] MAGISTRATE 04/24/2008 6:[address] MAGISTRATE Amanda Scott MD URINE ORDERABLES Final Resul t Performing Organization Address [facility] Phone Number INTERFACE SYSTEM Refer to clinic/hospital department [facility] CLIA# [id number] [address] [place] [address] * URINALYSIS WITH REFLEX CULTURE (04/24/2008 6:[address] MAGISTRATE) URINE CULTURE ORDER Not indicated [facility] Comment: Criteria for a reflex culture include one or more of the following: Abnormal nitrite, leukocyte esterase, WBCs or RBCs. Lack of qualifying criteria does not exclude the possiblity of a urinary tract infection. Dilute urine, drug interference, etc. may decrease the sensitivity of the criteria analytes. Urine specimen (specimen) 04/24/2008 6:[address] MAGISTRATE 04/24/2008 6:[address] MAGISTRATE Amanda Scott MD URINE ORDERABLES Final Resul t Performing Organization Address [facility] Phone Number INTERFACE SYSTEM Refer to clinic/hospital department [facility] CLIA# [id number] [address] [place] [address] documented in this encounter Visit Diagnoses Not on filedocumented in this encounter
--- OUTSIDE RECORDS SUMMARY | 2024-10-12 00:37 | XMS_ITS | Continuity of Care Document ---
Author Organization [facility] Address [address] [place] [address] [address] [place] [address] Phone Care Team Providers Care Chaser Apprentice Name Role Phone Constantinemedhat CHRISTIANOTSCOTT Julie Unavailable Unava ilable Procedures Procedure Date PT RE-EVALUATION THERAPEUTIC EXERCISES NEUROMUSCULAR RE-ED MANUAL THERAPY FUNC ACTIVITY 15 MIN THERAPEUTIC EXERCISES NEUROMUSCULAR RE-ED MANUAL THERAPY FUNC ACTIVITY 15 MIN PT RE-EVALUATION THERAPEUTIC EXERCISES NEUROMUSCULAR RE-ED MANUAL THERAPY FUNC ACTIVITY 15 MIN THERAPEUTIC EXERCISES NEUROMUSCULAR RE-ED MANUAL THERAPY FUNC ACTIVITY 15 MIN THERAPEUTIC EXERCISES NEUROMUSCULAR RE-ED MANUAL THERAPY FUNC ACTIVITY 15 MIN HOT/COLD PACK ELECTRIC STIMULATION UNATT Theraband, per yard PT EVALUATION THERAPEUTIC EXERCISES MANUAL THERAPY Advance Directives Directive Yes / No Effective Date File Name No Information Encounters Encounter Description Practice Location Reason(s) For Visit Diagnoses Date Provider Providers Copied on Encounter [facility], [address] [place] [address] [address], [place], [place], [address], tel:[phone] [place] [facility] No Information Lynn Camacho. [address] [facility], [address], [place], [address], [place]. tel:[phone] Referring Provider: [facility] [address], [place], [address]. tel:[phone], [place], [place], [address], tel:[phone] [place] [facility] No Information Lynn Camacho. [address] [facility], [address], [place], [address], [place]. tel:[phone] Referring Provider: [facility] [address], [place], [address]. tel:[phone], [place], [place], [address], tel:[phone] [place] [facility] No Information Lynn Camacho. [address] [facility], [address], [place], [address], [place]. tel:[phone] Referring Provider: Jun Manuel [address], [place], [address]. tel:[phone], [place], [place], [address], tel:[phone] [place] [facility] No Information Lynn Camacho. [address] [facility], [address], [place], [address], [place]. tel:[phone] Referring Provider: [facility] [address], [place], [address]. tel:[phone], [place], [place], [address], tel:[phone] [place] [facility] No Information Lynn Camacho. [address] [facility], [address], [place], [address], [place]. tel:[phone] Referring Provider: Jun [address], [place], [address]. tel:[phone] [facility], [address] [facility] [address], [place], [place], [address], [place] tel:[phone] [place] [facility] Pain in joint involving pelvic region and thigh Lynn Camacho. [address] [facility], [address], [place], [address], [place]. tel:[phone] Referring Provider: Jun [address], [place], [address]. tel:[phone] Family History Family Member Type Diagnosis Age At Onset No Information Payers Payer name Insurance type Covered alliance party ID Merari correia(s) [facility] [id number] [facility] 2013 Social History Type Description Quantity Date Captured Comments Sex Female Smoking Status No Information Chief Complaint And Reason For Visit No Information Reason For Referral Reason For Referral No Information History Of Present Illness Encounter Date Complaint History Of Prese nt Illness No Information Functional Status Date Functional Assessmen t No Information Instructions Date Instruction Additional Infor mation No Information Assessments Type Assessment Date No Information Patient Care Teams Name Effective Dates (start - stop) Status Members No Information
--- OUTSIDE RECORDS SUMMARY | 2024-10-12 00:37 | XMS_ITS | Encounter Summary ---
Author Organization [facility] Address [address] [place] [address] Care Team Providers Care Nurses Assistant Name Role Phone Unavailable Primary Care Provider Unavailabl e Encounter Details Date Type Department Care Team (Late st Contact Info) Description 06/08/2008 Outpatient Historical HIS 6 FAMILY FOCUS CARE Myra Randall MD [address] [place] [address] Deliv Social History Tobacco Use Types Packs/Day Years Used Date Smoking Tobacco: Never Assessed Comments Unknown Sex and Gender Information Value Date Recorded Sex Assigned at Not on file Legal Sex Female 3:42 AM RECREATIONAL THERAPIST Gender Identity Not on file Sexual Orientation Not on file documented as of this encounter Plan of Treatment Not on file documented as of this encounter Procedures Procedure Name Priority Date/Time Associated Diagnosis Comments PATHOLOGY Routine 06/08/2008 5:00 PM RECREATIONAL THERAPIST CBC WITH DIFFERENTIAL Routine 06/08/2008 12:05 PM RECREATIONAL THERAPIST URINALYSIS W/REFLEX MICROSCOPIC Routine 06/08/2008 12:05 PM RECREATIONAL THERAPIST TYPE AND SCREEN Routine 06/08/2008 12:00 PM RECREATIONAL THERAPIST documented in this encounter Results * PATHOLOGY (06/08/2008 5:00 PM RECREATIONAL THERAPIST) FINAL REPORT [facility] [address] [place], [place] [address] Patient: ECHO ANDREWS : 1980 Procedure Date: 06/08/2008 Accession Date: 2008 Case No: [id number] Ordering Dr: MYRA RANDALL Case types AW, BW, FW, NW and SH are performed by [facility], [place], [place] SURGICAL PATHOLOGY & NON-GYNECOLOGIC CYTOPATHOLOGY REPORT DIAGNOSIS PLACENTA, SECTION: - DIAMNIONIC-MONOCHO RIONIC TWIN PLACENTA. - FIBROTIC AVASCULAR VILLI, RARE FOCUS OF, DOUBLE-CLAMPED PLACENTA. - SMALL FOR TWIN GESTATION. Specimen Description: Placenta. Operative Procedure: . Patient Information/Histor y/Diagnosis: A 37+-week twin gestation; rupture of membranes/in labor. Gross: Received in one container labeled JulianaKatyah milad Sanabria and designated no micro is a 560-g, 31.0 x 24.5 x 1.3-cm twin placenta. One domain has an umbilical cord with one cord clamp. The second domain has an umbilical cord with two cord clamps. The dividing membranes are pink-burkett, thin and translucent. They do not insert in a prominent fibrin ridge. The specimen is consistent with a diamnionic-monocho rionic twin placenta. No vascular anastomoses are demonstrated by air injection. The disk with one cord clamp measures 8.0 x 24.5 x 1.3 cm. The surface is blue-porter. The 22.5-cm long x 1.0-cm diameter attached segment of umbilical cord is eccentrically inserted 4.5 cm from the closest margin, is normally torsed, focally congested, and has a vascular pattern of three vessels. Also received is a 27.0-cm long x 1.5-cm diameter unattached segment of umbilical cord with one cord clamp. The membranes are pink-burkett, thin, and translucent. They are marginally inserted and ruptured to the margin. The maternal surface is focally disrupted but appears complete with no retroplacental hemorrhage. Sectioning of the parenchyma demonstrates a burgundy-red, spongy cut surface with no lesions. Rewind Operator sections are submitted as follows: A1-umbilical cord and membranes; A2 through A4-placental parenchyma; A5-dividing membranes. The domain with two cord clamps measures 23.0 x 24.5 x 1.3 cm. The surface is blue-porter. The 22.0-cm long x 2.0-cm diameter attached segment of umbilical cord is eccentrically inserted 7.0 cm from the closest margin, normally torsed, and has a vascular pattern of three vessels. Also received is a 24.0-cm long x 1.5-cm diameter unattached segment of umbilical cord with two cord clamps. The membranes are pink-burkett, thin, and translucent. They are marginally inserted and ruptured to the margin. The maternal surface is complete and intact with no retroplacental hemorrhage. Sectioning of the parenchyma demonstrates a dark, burgundy-red, spongy cut surface with no lesions. The parenchyma ranges in thickness from 0.6 cm peripherally to 2.0 cm centrally. Rewind Operator sections are submitted as follow: B1-umbilical cord and membranes; B2 through B4-placental parenchyma. [facility] 06.11.2008 11:35 am Microscopic: The slides are labeled Echo Juliana and [id number]. The dividing membrane is diamnionic-monocho rionic. Both umbilical cords have three vessels. Both membranes are free of significant acute inflammation. Both placental domains are composed of chorionic villi having a third trimester appearance. In the double-clamped domain, there is a rare collection of fibrotic avascular villi. No infarcts or hematomas are identified in either domain. No vascular thrombi are identified in either domain. The combined weight of the two domains of 560 g is small for a 37-week twin gestation. [facility] 06.13.2008 08:02 am Staging Form: No ELECTRONIC SIGNATURE FOR IRIS LINDO M.D.- 06/13/08 10:22 am INTERFACE SYSTEM 06/08/2008 5:00 PM RECREATIONAL THERAPIST us Myra Randall MD PATHOLOGY/CYTOLOGY ORDERABLE S Final Result INTERFACE SYSTEM Refer to clinic/hospital department * (ABNORMAL) URINALYSIS (06/08/2008 12:05 PM RECREATIONAL THERAPIST) LEUKOCYTE ESTERASE UA 1+(A) Negative [facility] RBC UA 2 0 - 4 /HPF [facility] SPECIFIC GRAVITY UA 1.022 1.001 - 1.035 [facility] BLOOD UA Negative Negative [facility] GLUCOSE UA Negative Negative [facility] COLOR UA Yellow [facility] NITRITE UA Negative Negative [facility] UROBILINOGEN UA <1 <=1 mg/dL [facility] BACTERIA UA 2+(A) None Seen /HPF [facility] PH UA 6.0 5.0 - 8.0 [facility] KETONES UA Negative Negative [facility] WBC UA 3 0 - 5 /HPF [facility] CLARITY UA Slt. Cloudy(A) Clear [facility] PROTEIN UA 1+(A) Negative [facility] EPITHELIAL CELLS, URINE 5-10 /HPF [facility] BILIRUBIN UA Negative Negative [facility] Urine specimen (specimen) 06/08/2008 12:05 PM RECREATIONAL THERAPIST 06/08/2008 12:01 PM RECREATIONAL THERAPIST us Myra Randall MD URINE ORDERABLES Final Resul t INTERFACE SYSTEM Refer to clinic/hospital department [facility] CLIA# [id number] [address] [facility] [place] [address] * (ABNORMAL) CBC WITH DIFFERENTIAL (06/08/2008 12:05 PM RECREATIONAL THERAPIST) RBC 3.92 3.90 - 4.90 M/uL [facility] MCHC 34.4 31.5 - 35.5 % [facility] MCV 98.7 82.0 - 99.0 fL [facility] PLATELETS 160 140 - 350 K/uL [facility] HEMOGLOBIN 13.3 11.8 - 14.8 g/dL [facility] RDW 13.6 11.5 - 14.5 % [facility] WBC 10.5(H) 4.0 - 9.8 K/uL [facility] MCH 33.9(H) 27.2 - 32.6 pg [facility] MPV 11.2 9.3 - 12.4 fL [facility] HEMATOCRIT 38.7 35.5 - 44.0 % [facility] RDW-STDEV 48.5 37.1 - 48.7 fL [facility] MONOCYTE ABSOLUTE 0.66 0.10 - 1.30 K/uL [facility] NEUTROPHILS 77(H) 45 - 70 % [facility] NEUTROPHIL ABSOLUTE 8.02(H) 1.90 - 7.00 K/uL [facility] EOSINOPHILS 1 0 - 7 % [facility] EOSINOPHIL ABSOLUTE 0.11 0.00 - 0.70 K/uL [facility] LYMPHOCYTES 16 16 - 45 % [facility] LYMPHOCYTE ABSOLUTE 1.68 0.70 - 4.50 K/uL [facility] BASOPHILS 0 0 - 2 % [facility] BASOPHILS ABSOLUTE 0.01 0.00 - 0.20 K/uL [facility] MONOCYTES 6 3 - 13 % [facility] Blood specimen (specimen) 06/08/2008 12:05 PM RECREATIONAL THERAPIST 06/08/2008 12:00 PM RECREATIONAL THERAPIST us Myra Randall MD HEMATOLOGY ORDERABLES Edited INTERFACE SYSTEM Refer to clinic/hospital department [facility] CLIA# [id number] [address] [place] [address] * TYPE AND SCREEN (06/08/2008 12:00 PM RECREATIONAL THERAPIST) HISTORY CHECK History Checked [facility] SPECIMEN LIFE 3 days from drawdate [facility] ABO/RH TYPE A Negative [facility] ANTIBODY SCREEN Negative [facility] Blood specimen (specimen) 06/08/2008 12:00 PM RECREATIONAL THERAPIST us Myra Randall MD BLOOD BANK ORDERABLES Edited INTERFACE SYSTEM Refer to clinic/hospital department [facility] CLIA# [id number] [address] [place] [address] documented in this encounter Visit Diagnoses Diagnosis delivery, without mention of indication, delivered, with or without mention of antepartum condition documented in this encounter
--- OUTSIDE RECORDS SUMMARY | 2024-10-12 00:37 | XMS_ITS | Clinical Summary ---
Author Organization [facility] Address [address] [place] [address] Phone Care Team Providers [facility] Director Name Role Phone Unavailable Primary Care Provider Unavailabl e Allergies No known active allergies Medications vit-iron fumarate-fa (DYLON ) 28-0.8 mg Tablet Take 1 Tab by mouth daily. Active calcium carbonate (TUMS) 200 mg (500 mg) Tablet, Chewable Take 500 mg by mouth 3 times daily with meals. Active oxyCODONE-acetam inophen (PERCOCET) 5-325 mg tablet Take 1 Tab by mouth every 4 hours as needed for Pain, Moderate. 20 Tab 0 12/07/2013 Active Active Problems Problem Noted Date Diagnosed Date RLTCS 9.2 12/04/2013 Immunizations Immunization Administration Dates Next Due ([employer])(12 YR UP) COVID-19 VACCINE - EMERGENCY USE AUTHORIZATION, MRNA, [id number](PF) 30 MCG/0.3 ML IM SUSP 04/22/2020,03/31/2020 Rho (D) IMMUNE GLOBULIN 1,500 UNIT(300 MCG) INJE CTION 12/04/2013 Rhogam (Rhig) Human Full Dose IM 09/26/2013 Family History Medical History Relation Name Comments Healthy Brother Heart Disease Father Hypertension Father Relation Name Status Comments Brother Alive Father Alive Mother Social History Tobacco Use Types Packs/Day Years Used Date Smoking Tobacco: Never Alcohol Use Standard Drinks/Week Comments No 0 (1 standard drink = 0.6 oz pur e alcohol) Comments No Sex and Gender Information Value Date Recorded Sex Assigned at Not on file Legal Sex Female 3:42 AM [employer] Gender Identity Not on file Sexual Orientation Not on file Last Filed Vital Signs Vital Sign Reading Time Taken Comments Blood Pressure 117/75 12/07/2013 7:10 AM CDT Pulse 77 12/07/2013 7:10 AM CDT Temperature 37 C (98.6 F) 12/07/2013 7:10 AM CDT Respiratory Rate 18 12/07/2013 7:10 AM CDT Oxygen Saturation 100% 12/04/2013 11:00 AM CDT Inhaled Oxygen Concentration - - Weight 79.1 kg (174 lb 6 oz) 12/04/2013 6:54 AM CDT Height 162.6 cm (5' 4) 12/04/2013 6:54 AM CDT Body Mass Index 29.93 12/04/2013 6:54 AM CDT Plan of Treatment Health Maintenance Due Date Last Done Comments DTAP/TDAP/TD VACCINES (1 - Tdap) 06/11/1999 HEPATITIS B VACCINES (1 of 3 - 19+ 3-dose series) 06/11/1999 HPV/Cotest (21-29) 2001 CERVICAL CANCER SCREENING 2010 HPV/Cotest (30-65) 2010 PAP SMEAR 2010 BREAST CANCER SCREENING 2020 COVID-19 Vaccine (3 2023-25 season) 2023 04/22/2020, 03/31/2020 INFLUENZA VACCINE (#1) 2024 HPV VACCINES Aged Out No longer eligi ble based on patient's age to complete this topic Insurance [facility] [id number] Advance Directives For more information, please contact: [phone] * Full Code (Latest Code Status on File) Date Activated Date Inactivated Comments 12/04/2013 12:12 PM 12/07/2013 2:19 PM * Full Code Date Activated Date Inactivated Comments 12/04/2013 7:17 AM 12/04/2013 12:12 PM
--- OUTSIDE RECORDS SUMMARY | 2024-10-12 00:37 | XMS_ITS | Data Portability ---
Author Organization [facility] [employer], Main Office Address [address] [place] [address] Assessment No assessment recorded. Plan of Treatment Reminders Order Date Submit Date Provider Last Modified By Organization Details Last Modified Time Details Appointments None record ed. Lab None record ed. Referral None record ed. Procedures None record ed. Surgeries None record ed. Imaging None record ed. Medication Orders None record ed. Patient TargetsNo targets recorded. Patient InstructionsNo instructions recorded. Reason for Referral None Reported. Results Created Date Observation Date Name Description Value Unit Range Abnormal Flag Note LastModifiedBy Organization Detail LastModifiedTime 07/12/19 21 07/11/2020 SARS CoV 2 RNA (COVI D-19) , QL, weed control inspector-P CR, respi rator y speci men covid-19 RNA negati ve This test has been autho rized by the FDA under an Emerg ency Use Autho rizat ion (EUA) for use by autho rized labor atori es. Negat junior resul ts shoul d be treat ed as presu mptiv e and, if incon siste nt with clini eleazar signs and sympt oms neces billy for patie nt manag ement , shoul d be teste d with diffe rent autho rized or clear ed molec ular tests . Negat junior resul ts do not precl ude SARS- Co-V- 2 infec tion and shoul d not be used as the sole basis for patie nt manag ement decis ions. Negat junior resul ts shoul d be consi dered in the alber xt of a patie nt's recen t expos ures, histo ry and the prese nce of clini eleazar signs and sympt oms consi stent with COVID -19. Pleas e oriana w the Fact Sheet s for healt h care provi ders and patie nts at the [facility] te: https ://gl oalpo into care. t/en/ produ ct-de tails /id-n ow-co vid-1 9.htm l Metho dolog y: Isoth ermal Nucle ic Acid Ampli ficat ion Not Available [facility] (Lab) [address] [place], [address], 07/11/2020 10:16:09 07/15/19 21 07/14/2020 pregn luba test, urine ur preg negati ve TESTI NG PERFO RMED BY SURGI ELEAZAR SERVI LETTY PERSO NNEL. Not Available [facility] (Lab) [address] [place], [address], 07/14/2020 09:18:56 07/15/19 21 07/14/2020 pregn luba test, urine lot no. [id number] Not Available [facility] (Lab) [address] [place], [address], 07/14/2020 09:18:56 07/15/19 21 07/14/2020 pregn luba test, urine pos QC positi ve Not Available [facility] (Lab) [address] [place], [address], 07/14/2020 09:18:56 07/15/19 21 07/14/2020 pregn luba test, urine neg QC negati ve Not Available [facility] (Lab) [address] [place], [address], 07/14/2020 09:18:56 12/30/19 21 01/02/2021 A1C W/GLY COMAR K(R) REFLE X Hb A1C diabetic assessment 4.7 %Hb below low normal Note: A refle x test was order ed on this speci men. If A1c resul ts are betwe en a value of 6.0 to 8.0 (incl uding 6.0 and 8.0), Glyco Festus testi ng is perfo rmed. Glyco Festus refle cts post prand ial gluco se spike s from the past 2 weeks , where as A1c refle cts avera ge glyce raul contr ol over the past 3 month s. Refer ence Range : May l: <5.7 Incre ased risk for diabe melodie: 5.7 - 6.4 Ongoi ng Hyper glyce patrice: >6.4 Glyce raul contr ol for adult s with diabe melodie: <7.0 (ADA) Not Available [facility] [address] [facility], [place], [address], 01/02/2021 20:08:51 12/30/19 21 01/02/2021 A1C W/GLY COMAR K(R) REFLE X estimated average glucose 88 mg/dL Not Available [facility] [address] [facility], [place], [address], 01/02/2021 20:08:51 12/30/19 21 01/02/2021 A1C W/GLY COMAR K(R) REFLE X glycomark(R) (1,5 Ag) tnp ug/mL Testi ng Not Indic ated Refle x not perfo rmed Glyco Festus( TM) is inten ded for use with manag ing glyce raul contr ol in diabe tic patie nts. A low resul t corre spond s to high gluco se peaks . 1, 5-AG blood level s can be affec kori by clini eleazar condi tions or medic ation s. Pleas e refer to the direc tory of servi letty or labco rp websi te test menu for detai led list of limit ation s. Not Available [facility] [address] [facility], [place], [address], 01/02/2021 20:08:51 12/30/19 21 12/30/2020 LIPID CASCA DE HDL cholesterol 60 mg/dL >39 Not Available [facility]) [address] [facility], [place], [address], 01/02/2021 20:08:51 12/30/19 21 12/30/2020 LIPID CASCA DE LDL/HDL ratio 1.3 ratio 0.0-3. 2 LDL/H DL Ratio Men Women 1/2 Avg.R isk 1.0 1.5 Avg.R isk 3.6 3.2 2X Avg.R isk 6.2 5.0 3X Avg.R isk 8.0 6.1 Not Available [facility] ([facility]) [address] [facility], [place], [address], 01/02/2021 20:08:51 12/30/19 21 12/30/2020 LIPID CASCA DE non-HDL cholesterol 95 mg/dL 0-129 Not Available [facility] ([facility]) [address] [place], [address], 01/02/2021 20:08:51 12/30/19 21 12/30/2020 LIPID CASCA DE triglyceride s 76 mg/dL 0-149 Not Available [facility] ([facility]) [address] [place], [address], 01/02/2021 20:08:51 12/30/19 21 12/30/2020 LIPID CASCA DE LDL chol calc ([facility]) 80 mg/dL 0-99 Not Available [facility] ([facility]) [address] [place], [address], 01/02/2021 20:08:51 12/30/19 21 12/30/2020 LIPID CASCA DE comment: swatch clerk Not Available [facility] ([facility]) [address] [place], [address], 01/02/2021 20:08:51 12/30/19 21 12/31/2020 LIPID CASCA DE LDL-P 1003 nmol/ L <1000 above high normal Low < 1000 Moder ate 1000 - 1299 Borde rline -High 1300 - 1599 High 1600 - 2000 Very High > 2000 Not Available [facility] ([facility]) [address] [facility], [place], [address], 01/02/2021 20:08:51 12/30/19 21 12/31/2020 LIPID CASCA DE HDL-P (total) 45.9 umol/ L >=30.5 Not Available [facility] ([facility]) [address] [place], [address], 01/02/2021 20:08:51 12/30/19 21 12/31/2020 LIPID CASCA DE small LDL-P 459 nmol/ L <=527 Not Available [facility] ([facility]) [address] [facility], [place], [address], 01/02/2021 20:08:51 12/30/19 21 12/31/2020 LIPID CASCA DE LDL size 20.5 nm >20.5 below low normal ----- ----- ----- ----- ----- ----- ----- ----- ----- ----- ----- --- INTER PRETA TIVE INFOR ZACH N PARTI LISHA SAIMA NTRAT ION AND SIZE <--Lo wer CVD Risk Highe r CVD Risk- -> LDL AND HDL PARTI CLES Perce ntile in Refer ence Popul ation HDL-P (tota l) High 75th 50th 25th Low >34.9 34.9 30.5 26.7 <26.7 Small LDL-P Low 25th 50th 75th High <117 117 527 839 >839 LDL Size <-Lar ge (Louann aleida A)-> <-Sma ll (Louann aleida B)-> 23.0 20.6 20.5 19.0 ----- ----- ----- ----- ----- ----- ----- ----- ----- ----- ----- --- Small LDL-P and LDL Size are assoc iated with CVD risk, but not after LDL-P is taken into accou nt. Not Available [facility] ([facility]) [address] [facility], [place], [address], 01/02/2021 20:08:51 12/30/19 21 12/31/2020 LIPID CASCA DE LP-IR score 31 <=45 INSUL IN RESIS TANCE MARKE R <--In sulin Sensi tive Insul in Resis tant- -> Perce ntile in Refer ence Popul ation Insul in Resis tance Score LP-IR Score Low 25th 50th 75th High <27 27 45 63 >63 LP-IR Score is inacc urate if patie nt is non-f astin g. The LP-IR score is a labor atory devel oped index that has been assoc iated with insul in resis tance and diabe melodie risk and shoul d be used as one compo nent of a physi moriah' s clini eleazar asses sment . Not Available [facility] ([facility]) [address] [facility], [place], [address], 01/02/2021 20:08:51 12/30/19 21 12/30/2020 UA/M W/RFL X CULTU RE, ROUTI NE specific gravity 1.021 1.005- 1.030 Not Available [facility] ([facility]) [address] [place], [address], 01/02/2021 20:08:50 12/30/19 21 12/30/2020 UA/M W/RFL X CULTU RE, ROUTI NE pH 5.5 5.0-7. 5 Not Available [facility] ([facility]) [address] [place], [address], 01/02/2021 20:08:50 12/30/19 21 12/30/2020 UA/M W/RFL X CULTU RE, ROUTI NE urine-color yellow yellow Not Available [facility] ([facility]) [address] [facility], [place], [address], 01/02/2021 20:08:50 12/30/19 21 12/30/2020 UA/M W/RFL X CULTU RE, ROUTI NE appearance clear clear Not Available [facility] ([facility]) [address] [facility], [place], [address], 01/02/2021 20:08:50 12/30/19 21 12/30/2020 UA/M W/RFL X CULTU RE, ROUTI NE WBC esterase negati ve negati ve Not Available [facility] ([facility]) [address] [facility], [place], [address], 01/02/2021 20:08:50 12/30/19 21 12/30/2020 UA/M W/RFL X CULTU RE, ROUTI NE protein negati ve negati ve/tra ce Not Available [facility] ([facility]) [address] [facility], [place], [address], 01/02/2021 20:08:50 12/30/19 21 12/30/2020 UA/M W/RFL X CULTU RE, ROUTI NE glucose negati ve negati ve Not Available [facility] ([facility]) [address] [facility], [place], [address], 01/02/2021 20:08:50 12/30/19 21 12/30/2020 UA/M W/RFL X CULTU RE, ROUTI NE ketones negati ve negati ve Not Available [facility] ([facility]) [address] [facility], [place], [address], 01/02/2021 20:08:50 12/30/19 21 12/30/2020 UA/M W/RFL X CULTU RE, ROUTI NE occult blood negati ve negati ve Not Available [facility] ([facility]) [address] [facility], [place], [address], 01/02/2021 20:08:50 09/27/20 21 12/30/2020 UA/M W/RFL X CULTU RE, ROUTI NE bilirubin negati ve negati ve Not Available [facility] ([facility]) [address] [facility], [place], [address], 01/02/2021 20:08:50 12/30/19 21 12/30/2020 UA/M W/RFL X CULTU RE, ROUTI NE urobilinogen ,semi-qn 0.2 mg/dL 0.2-1. 0 Not Available [facility] ([facility]) [address] [facility], [place], [address], 01/02/2021 20:08:50 12/30/19 21 12/30/2020 UA/M W/RFL X CULTU RE, ROUTI NE nitrite, urine negati ve negati ve Not Available [facility] ([facility]) [address] [facility], [place], [address], 01/02/2021 20:08:50 12/30/19 21 12/30/2020 UA/M W/RFL X CULTU RE, ROUTI NE microscopic examination commen t Micro scopi c follo ws if indic ated. Not Available [facility] ([facility]) [address] [facility], [place], [address], 01/02/2021 20:08:50 12/30/19 21 12/30/2020 UA/M W/RFL X CULTU RE, ROUTI NE microscopic examination see below: Micro scopi c was indic ated and was perfo rmed. Not Available [facility] ([facility]) [address] [place], [address], 01/02/2021 20:08:50 12/30/19 21 12/30/2020 UA/M W/RFL X CULTU RE, ROUTI NE WBC 0-5 /hpf 0 - 5 Not Available [facility] ([facility]) [address] [place], [address], 01/02/2021 20:08:50 12/30/19 21 12/30/2020 UA/M W/RFL X CULTU REPAULI NE RBC 0-2 /hpf 0 - 2 Not Available [facility] ([facility]) [address] [facility], [place], [address], 01/02/2021 20:08:50 12/30/19 21 12/30/2020 UA/M W/RFL X CULTU RE, ROUTI NE epithelial cells (non renal) 0-10 /hpf 0 - 10 Not Available [facility] ([facility]) [address] [facility], [place], [address], 01/02/2021 20:08:50 12/30/19 21 12/30/2020 UA/M W/RFL X CULTU RE ROUTI NE epithelial cells (renal) swatch clerk Not Available [facility] ([facility]) [address] [facility], [place], [address], 01/02/2021 20:08:50 12/30/19 21 12/30/2020 UA/M W/RFL X CULTU REPAULI NE casts none seen /lpf none seen Not Available [facility] ([facility]) [address] [facility], [place], [address], 01/02/2021 20:08:50 12/30/19 21 12/30/2020 UA/M W/RFL X CULTU REWILSON NE cast type swatch clerk Not Available [facility] ([facility]) [address] [facility], [place], [address], 01/02/2021 20:08:50 12/30/19 21 12/30/2020 UA/M W/RFL X CULTU RE ROUTI NE crystals swatch clerk Not Available [facility] ([facility]) [address] [facility], [place], [address], 01/02/2021 20:08:50 12/30/19 21 12/30/2020 UA/M W/RFL X CULTU RE, ROUTI NE crystal type swatch clerk Not Available [facility] ([facility]) [address] [place], [address], 01/02/2021 20:08:50 12/30/19 21 12/30/2020 UA/M W/RFL X CULTU RE, ROUTI NE mucus threads swatch clerk Not Available [facility] ([facility]) [address] [place], [address], 01/02/2021 20:08:50 12/30/19 21 12/30/2020 UA/M W/RFL X CULTU RE, ROUTI NE bacteria modera te none seen/f ew abnormal Not Available [facility] ([facility]) [address] [facility], [place], [address], 01/02/2021 20:08:50 12/30/19 21 12/30/2020 UA/M W/RFL X CULTU RE, ROUTI NE yeast swatch clerk Not Available [facility] ([facility]) [address] [place], [address], 01/02/2021 20:08:50 12/30/19 21 12/30/2020 UA/M W/RFL X CULTU RE, ROUTI NE trichomonas swatch clerk Not Available [facility] ([facility]) [address] [place], [address], 01/02/2021 20:08:50 12/30/19 21 12/30/2020 UA/M W/RFL X CULTU RE, ROUTI NE comment swatch clerk Not Available [facility] ([facility]) [address] [place], [address], 01/02/2021 20:08:50 12/30/19 21 12/30/2020 UA/M W/RFL X CULTU RE, ROUTI NE urinalysis reflex commen t This speci men has refle xed to a Urine Cultu re. Not Available [facility] ([facility]) [address] [facility], [place], [address], 01/02/2021 20:08:50 12/30/19 21 12/31/2020 UA/M W/RFL X CULTU RE, ROUTI NE urine culture, routine final report Not Available [facility] ([facility]) [address] [facility], [place], [address], 01/02/2021 20:08:50 12/30/19 21 12/31/2020 UA/M W/RFL X CULTU RE, WILSON NE result 1 no growth Not Available [facility] ([facility]) [address] [facility], [place], [address], 01/02/2021 20:08:50 12/30/19 21 12/30/2020 CMP14 +4AC glucose 81 mg/dL 65-99 Not Available [facility] ([facility]) [address] [facility], [place], [address], 01/02/2021 20:08:49 12/30/19 21 12/30/2020 CMP14 +4AC BUN 16 mg/dL 6-24 Not Available [facility] ([facility]) [address] [facility], [place], [address], 01/02/2021 20:08:49 12/30/19 21 12/30/2020 CMP14 +4AC creatinine 0.77 mg/dL 0.57-1 .00 Not Available [facility] ([facility]) [address] [facility], [place], [address], 01/02/2021 20:08:49 12/30/19 21 12/30/2020 CMP14 +4AC eGFR if nonafricn AM 97 mL/mi n/1.7 3 >59 Not Available [facility] ([facility]) [address] [place], [address], 01/02/2021 20:08:49 12/30/19 21 12/30/2020 CMP14 +4AC eGFR if africn AM 112 mL/mi n/1.7 3 >59 Lab ny curre ntly repor ts eGFR in compl iance with the curre nt recom menda tions of the [facility] ation . [facility] will updat e repor ting as new guide lines are publi shed from the NKF-A SN Task force . Not Available [facility] ([facility]) [address] [place], [address], 01/02/2021 20:08:49 12/30/19 21 12/30/2020 CMP14 +4AC sodium 140 mmol/ L 134-14 4 Not Available [facility] ([facility]) [address] [place], [address], 01/02/2021 20:08:49 12/30/19 21 12/30/2020 CMP14 +4AC potassium 4.5 mmol/ L 3.5-5. 2 Not Available [facility] ([facility]) [address] [place], [address], 01/02/2021 20:08:49 12/30/19 21 12/30/2020 CMP14 +4AC chloride 108 mmol/ L 96-106 above high normal Not Available [facility] ([facility]) [address] [place], [address], 01/02/2021 20:08:49 12/30/19 21 12/30/2020 CMP14 +4AC carbon dioxide, total 20 mmol/ L 20-29 Not Available [facility] ([facility]) [address] [place], [address], 01/02/2021 20:08:49 12/30/19 21 12/30/2020 CMP14 +4AC calcium 8.4 mg/dL 8.7-10 .2 below low normal Not Available [facility] ([facility]) [address] [place], [address], 01/02/2021 20:08:49 12/30/19 21 12/30/2020 CMP14 +4AC phosphorus 2.8 mg/dL 3.0-4. 3 below low normal Not Available [facility] ([facility]) [address], [place], [address], 01/02/2021 20:08:49 12/30/19 21 12/30/2020 CMP14 +4AC protein, total 6.7 g/dL 6.0-8. 5 Not Available [facility] ([facility]) [address] [facility] [place], [address], 01/02/2021 20:08:49 12/30/19 21 12/30/2020 CMP14 +4AC albumin 4.2 g/dL 3.8-4. 8 Not Available [facility] ([facility]) [address] [facility], [place], [address], 01/02/2021 20:08:49 12/30/19 21 12/30/2020 CMP14 +4AC bilirubin, total 0.4 mg/dL 0.0-1. 2 Not Available [facility] ([facility]) [address] [facility] [place], [address], 01/02/2021 20:08:49 12/30/19 21 12/30/2020 CMP14 +4AC alkaline phosphatase 45 IU/L 44-121 Ple ase note refer ence inter santos huitron e Not Available [facility] ([facility]) [address] [facility] [place], [address], 01/02/2021 20:08:49 12/30/19 21 12/30/2020 CMP14 +4AC LDH 181 IU/L 119-22 6 Not Available [facility] ([facility]) [address] [facility], [place], [address], 01/02/2021 20:08:49 12/30/19 21 12/30/2020 CMP14 +4AC AST (SGOT) 20 IU/L 0-40 Not Available [facility] ([facility]) [address] [place], [address], 01/02/2021 20:08:49 12/30/19 21 12/30/2020 CMP14 +4AC ALT (SGPT) 18 IU/L 0-32 Not Available [facility] ([facility]) [address] [place], [address], 01/02/2021 20:08:49 12/30/19 21 12/30/2020 CMP14 +4AC GGT 10 IU/L 0-60 Not Available [facility] ([facility]) [address] [place], [address], 01/02/2021 20:08:49 12/30/19 21 12/30/2020 CMP14 +4AC cholesterol, total 155 mg/dL 100-19 9 Not Available [facility] ([facility]) [address] [place], [address], 01/02/2021 20:08:49 12/30/19 21 12/30/2020 CBC WITH DIFFE RENTI AL/PL ATELE T monocytes 6 % not estab. Not Available [facility] ([facility]) [address] [place], [address], 01/02/2021 20:08:49 12/30/19 21 12/30/2020 CBC WITH DIFFE RENTI AL/PL ATELE T eos 2 % not estab. Not Available [facility] ([facility]) [address] [place], [address], 01/02/2021 20:08:49 12/30/19 21 12/30/2020 CBC WITH DIFFE RENTI AL/PL ATELE T basos 1 % not estab. Not Available [facility] ([facility]) [address] [place], [address], 01/02/2021 20:08:49 12/30/19 21 12/30/2020 CBC WITH DIFFE RENTI AL/PL ATELE T immature cells swatch clerk Not Available [facility]) [address] [facility], [place], [address], 01/02/2021 20:08:49 12/30/19 21 12/30/2020 CBC WITH DIFFE RENTI AL/PL ATELE T neutrophils (absolute) 2.3 x10e3 /uL 1.4-7. 0 Not Available [facility] ([facility]) [address] [place], [address], 01/02/2021 20:08:49 12/30/19 21 12/30/2020 CBC WITH DIFFE RENTI AL/PL ATELE T lymphs (absolute) 1.2 x10e3 /uL 0.7-3. 1 Not Available [facility] ([facility]) [address] [place], [address], 01/02/2021 20:08:49 12/30/19 21 12/30/2020 CBC WITH DIFFE RENTI AL/PL ATELE T monocytes(ab solute) 0.2 x10e3 /uL 0.1-0. 9 Not Available [facility] ([facility]) [address] [place], [address], 01/02/2021 20:08:49 12/30/19 21 12/30/2020 CBC WITH DIFFE RENTI AL/PL ATELE T eos (absolute) 0.1 x10e3 /uL 0.0-0. 4 Not Available [facility] ([facility]) [address] [place], [address], 01/02/2021 20:08:49 12/30/19 21 12/30/2020 CBC WITH DIFFE RENTI AL/PL ATELE T baso (absolute) 0.0 x10e3 /uL 0.0-0. 2 Not Available [facility] ([facility]) [address] [facility], [place], [address], 01/02/2021 20:08:49 12/30/19 21 12/30/2020 CBC WITH DIFFE RENTI AL/PL ATELE T immature granulocytes 0 % not estab. Not Available [facility] ([facility]) [address] [facility], [place], [address], 01/02/2021 20:08:49 12/30/19 21 12/30/2020 CBC WITH DIFFE RENTI AL/PL ATELE T immature grans (abs) 0.0 x10e3 /uL 0.0-0. 1 Not Available [facility] ([facility]) [address] [facility], [place], [address], 01/02/2021 20:08:49 12/30/19 21 12/30/2020 CBC WITH DIFFE RENTI AL/PL ATELE T NRBC swatch clerk Not Available [facility] ([facility]) [address] [facility], [place], [address], 01/02/2021 20:08:49 12/30/19 21 12/30/2020 CBC WITH DIFFE RENTI AL/PL ATELE T hematology comments: swatch clerk Not Available [facility]) [address] [facility], [place], [address], 01/02/2021 20:08:49 12/30/19 21 12/30/2020 CBC WITH DIFFE RENTI AL/PL ATELE T WBC 3.7 x10e3 /uL 3.4-10 .8 Not Available [facility] ([facility]) [address] [facility], [place], [address], 01/02/2021 20:08:49 12/30/19 21 12/30/2020 CBC WITH DIFFE RENTI AL/PL ATELE T RBC 4.01 x10e6 /uL 3.77-5 .28 Not Available [facility] ([facility]) [address] [facility], [place], [address], 01/02/2021 20:08:49 12/30/19 21 12/30/2020 CBC WITH DIFFE RENTI AL/PL ATELE T hemoglobin 13.7 g/dL 11.1-1 5.9 Not Available [facility] ([facility]) [address] [facility], [place], [address], 01/02/2021 20:08:49 12/30/19 21 12/30/2020 CBC WITH DIFFE RENTI AL/PL ATELE T hematocrit 39.0 % 34.0-4 6.6 Not Available [facility] ([facility]) [address] [facility], [place], [address], 01/02/2021 20:08:49 12/30/19 21 12/30/2020 CBC WITH DIFFE RENTI AL/PL ATELE T MCV 97 fL 79-97 Not Available [facility] ([facility]) [address] [facility], [place], [address], 01/02/2021 20:08:49 12/30/19 21 12/30/2020 CBC WITH DIFFE RENTI AL/PL ATELE T MCH 34.2 pg 26.6-3 3.0 above high normal Not Available [facility] ([facility]) [address] [facility], [place], [address], 01/02/2021 20:08:49 12/30/19 21 12/30/2020 CBC WITH DIFFE RENTI AL/PL ATELE T MCHC 35.1 g/dL 31.5-3 5.7 Not Available [facility] ([facility]) [address] [facility], [place], [address], 01/02/2021 20:08:49 12/30/19 21 12/30/2020 CBC WITH DIFFE RENTI AL/PL ATELE T RDW 11.6 % 11.7-1 5.4 below low normal Not Available [facility] ([facility]) [address] [facility], [place], [address], 01/02/2021 20:08:49 12/30/19 21 12/30/2020 CBC WITH DIFFE RENTI AL/PL ATELE T platelets 221 x10e3 /uL 150-45 0 Not Available [facility] ([facility]) [address] [facility], [place], [address], 01/02/2021 20:08:49 12/30/19 21 12/30/2020 CBC WITH DIFFE RENTI AL/PL ATELE T neutrophils 60 % not estab. Not Available [facility] ([facility]) [address] [facility], [place], [address], 01/02/2021 20:08:49 12/30/19 21 12/30/2020 CBC WITH DIFFE RENTI AL/PL ATELE T lymphs 31 % not estab. Not Available [facility] ([facility]) [address] [facility], [place], [address], 01/02/2021 20:08:49 12/30/19 21 12/30/2020 TSH+F REE T4 TSH 1.390 uIU/m L 0.450- 4.500 Not Available [facility] ([facility]) [address] [facility], [place], [address], 01/02/2021 20:08:48 12/30/19 21 12/30/2020 TSH+F REE T4 T4,free(dire ct) 1.34 NG/dL 0.82-1 .77 Not Available [facility] ([facility]) [address] [place], [address], 01/02/2021 20:08:48 08/28/19 21 08/27/2020 MAMMO , scree aldo, digit al, bilat eral No observ ation record ed. [id number] [facility] [address], [place], [address], 06/02/2022 04:40:49 08/28/19 21 08/27/2020 MAMMO , scree aldo, digit al, bilat eral No observ ation record ed. [id number] [facility] [address], [place], [address], 06/02/2022 04:40:49 09/25/19 21 08/27/2020 MAMMO , scree aldo, bilat eral No observ ation record ed. [id number] [facility] [address], [place], [address], 06/02/2022 04:40:49 09/04/19 22 09/02/2021 MAMMO , scree aldo, digit al, bilat eral No observ ation record ed. [id number] [facility] [address], [place], [address], 06/02/2022 04:40:49 10/28/19 23 08/25/2022 MAMMO , diagn ostic , digit al, unila teral No observ ation record ed. [facility] [address], [place], [address], 10/27/2022 14:54:25 Result Notes None recorded. Problems Name Problem SNOMED Code Status Onset Date Resolution Date Notes Provider Name and Address Organization Details Recorded Time Diverticuliti s of colon 222644342 Active 2020 Not Available [facility] 3 22:02:53 Anxiety 57543720 Active 2021 Not Available [facility] 3 22:02:53 Weight gain 2134427 Active 2021 Not Available [facility] 3 22:02:53 Problem Notes None recorded. Procedures Surgical History Date Name Laterality Status Provider Name and Address Organization Details Recorded Time Most Recent Mammogram completed Not Available [facility] 06/02/2022 04:30:26 1 total excision of bilateral fallopian tubes completed Not Available [facility] 06/02/2022 04:30:29 0 Date of Last Pap Smear completed Not Available [facility] 06/02/2022 04:30:26 completed Not Available [facility] 0 06/02/2022 04:30:29 Imaging Results None recorded. Procedure Notes None recorded. Medical Equipment None Reported. Medications Name Sig Start Date Stop Date Status Note LastModified by Organization Details LastModified Time Stool Softener 100 mg capsule TAKE 1 CAPSULE BY MOUTH TWICE DAILY 11/24 completed Not Available Not Available Not Available ibuprofen 800 mg tablet TAKE 1 TABLET BY MOUTH EVERY 8 HOURS active Not Available Not Available No t Available hydrocodone 5 mg-acetamin ophen 325 mg tablet 11/14 completed Not Available Not Available Not Available Mircette (28) 0.15 mg-0.02 mg (21)/0.01 mg (5) tablet Take 1 tablet every day by oral route. 04/30 completed Not Available Not Available Not Available nystatin-tr iamcinolone 100,000 unit/g-0.1 % topical cream 10/11 completed Not Available Not Available Not Available fluoxetine 10 mg capsule TAKE 1 CAPSULE BY MOUTH DAILY active Not Available Not Available No t Available mupirocin 2 % topical ointment APPLY TO SPOT ON HAND TWICE DAILY FOR 2 WEEKS 11/24 completed Not Available Not Available Not Available amoxicillin 875 mg-potassiu m clavulanate 125 mg tablet TK 1 T PO Q 8 H FOR 1 WK active Not Available Not Available No t Available levonorgest rel 0.15 mg-ethinyl estradiol 30 mcg tablets,3 mos pack(91) Take 1 tablet every day by oral route for 91 days. 04/30 completed Not Available Not Available Not Available .5 (28) 1.5 mg-30 mcg (21)/75 mg (7) tablet TAKE 1 TABLET BY MOUTH DAILY active Not Available Not Available No t Available Seasonique 0.15 mg-30 mcg (84)/10 mcg(7) tablets,3 month dose pack Take 1 tablet every day by oral route. 04/30 completed Not Available Not Available Not Available ProAir HFA 90 mcg/actuati on aerosol inhaler Inhale 2 puffs every 4 hours by inhalatio n route as needed. active Not Available Not Available No t Available Blisovi Fe 04/23 (28) 1 mg-20 mcg (21)/75 mg (7) tablet TAKE 1 TABLET BY MOUTH EVERY DAY 12/01 completed Not Available Not Available Not Available Anusol-HC 2.5 % topical cream with perineal applicator APPLY A THIN LAYER TO THE rectal area BY TOPICAL ROUTE 2-4 TIMESDAIL Y active Not Available Not Available No t Available Fluarix Quad (PF) 60 mcg (15 mcg x 4)/0.5 mL IM syringe active Not Available Not Available N ot Available Afluria Qd (36 mos up)(PF)60 mcg (15 mcg x4)/0.5 mL IM syringe ADM 0.5ML IM UTD 11/14 completed Not Available Not Available Not Available Afluria Qd 2019- (36 mos up)(PF)60 mcg (15 mcg x4)/0.5 mL IM syringe ADM 0.5ML IM UTD 11/14 completed Not Available Not Available Not Available Vitals Date Recorded Body mass index (BMI) Body height Body weight Systolic And Diastolic Provider Name and Address Organization Details Last Updated DateTime 07/30/2020 26.9 kg/m2 162.56 cm 81380.28 g 120/78 mm[Hg] Not Available [facility] 06/02/2022 04:31:50 Date Recorded Body mass index (BMI) Body height Oxygen saturation Oxygen saturation in Arterial blood by Pulse oximetry Heart rate Body temperature Body weight Systolic And Diastolic Provider Name and Address Organization Details Last Updated DateTime 1 25.7 kg/m2 162.56 cm 99 % 99 % 60 /min 97.8 [degF] 35728.8 6 g 118/70 mm[Hg] Not Available [facility] 3 04:31:50 Date Recorded Body mass index (BMI) Body height Oxygen saturation Oxygen saturation in Arterial blood by Pulse oximetry Heart rate Respiratory rate Body temperature Body weight Systolic And Diastolic Provider Name and Address Organization Details Last Updated DateTime 2 28.5 kg/m2 162.56 cm 98 % 98 % 93 /min 16 /min 97.6 [degF] 42607.3 3 g 138/80 mm[Hg] Not Available [facility] 04:31:50 Social History Question Answer Notes LastModified by [employer] Details LastModified Time Tobacco Smoking Status Never Smoker Not Available [facility] 06/02/2022 04:12:56 Do You Have An Advance Directive? No [id number] Information not available 06/02/2022 What Is Your Level Of Caffeine Consumption? Moderate [id number] Information not available 06/02/2022 In The 14 Days Before Symptom Onset, Have You Had Close Contact With A Laboratory-confirm ed COVID-19 While That Case Was Ill? No [id number] Information not available 06/02/2022 In The 14 Days Before Symptom Onset, Have You Had Close Contact With A Person Who Is Under Investigation For COVID-19 While That Person Was Ill? No [id number] Information not available 06/02/2022 What Type Of Diet Are You Following? REGULAR [id number] Information not available 06/02/2022 Have There Been Any Changes To Your Family Or Social Situation? No [id number] Information not available 06/02/2022 Are There Any Guns Present In Your Home? Yes [id number] Information not available 06/02/2022 Do You Use Insect Repellent Routinely? No [id number] [id number] Information not available 06/02/2022 What Is Your Relationship Status? [id number] Information not available 06/02/2022 Do You Use Your Seat Belt Or Car Seat Routinely? Yes [id number] Information not available 06/02/2022 Do You Have Smoke And Carbon Monoxide Detectors In Your Home? Yes [id number] 1412 Information not available 06/02/2022 Do You Use Sunscreen Routinely? Yes [id number] Information not available 06/02/2022 Has Tobacco Cessation Counseling Been Provided? No [id number].[id number] 2321 Information not available 06/02/2022 Have You Recently Traveled Abroad? No [id number].[id number] 5262 Information not available 06/02/2022 Do You Have Any Dietary Restrictions? No [id number].[id number] [id number] Information not available 06/02/2022 Sex: Unknown Functional Status Question Answer Note LastModified by Organizat ion Details LastModified Time Do you use any illicit or recreational drugs? No [id number] Information not available 06/02/2022 Do you or have you ever used any other forms of tobacco or nicotine? No [id number].[id number] Information not available 06/02/2022 What is your level of alcohol consumption? 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 Moderate [id number] Information not available 06/02/2022 Mental Status None recorded. Family History Relationship Description Onset Age of this Age Resolved Age Notes LastModified by Organization Details LastModified Time Mother Malignant neoplasm of ovary deceas ed 2019 [id number] Not available 06/02/2022 04:30:31 Father Heart disease [id number] Not available 06/02/2022 04:30:31 Father Hyperlipidem ia [id number] Not available 06/02/2022 04:30:31 Father Myocardial infarction [id number] Not available 06/02/2022 04:30:31 Maternal Grandmother Dementia [id number] Not available 06/02/2022 04:30:32 Maternal Grandfather Malignant neoplasm of lung [id number] Not available 06/02/2022 04:30:32 Medical History Condition Response HEADACHES/MIGRAINES Y ASTHMA Y Gynecological History Statement/Question Response Date of Last Pap Smear 01/09/2020 Current Control Method Sterilizati on Age at Menarche 11 Most Recent Mammogram 08/27/2020 Date of LMP 07/16/2020 Obstetrics History GPAL:G 3 P 0 0 0 4 Type Value Multiple Births 1 Living 4 Total 3 Immunizations Vaccine Type Date Status Note Provider Nam e and Address Organization Details Recorded Time influenza, unspecified formulation 3 completed DENZEL Tap[place], [place] [facility] 12/30/2022 10:24:19 Influenza, split virus, quadrivalent, preservative 9 completed Not Available [facility] 06/02/2022 04:40:06 influenza, unspecified formulation 0 completed Not Available [facility] 06/02/2022 04:40:06 COVID-19, mRNA, LNP-S, PF, 30 mcg/0.3 mL dose 1 completed Not Available [facility] 06/02/2022 04:40:06 COVID-19, mRNA, LNP-S, PF, 30 mcg/0.3 mL dose 1 completed Not Available [facility] 06/02/2022 04:40:07 COVID-19, mRNA, LNP-S, PF, 30 mcg/0.3 mL dose 0 completed Not Available [facility] 06/02/2022 04:40:07 Past Encounters Encounter ID Performer Location Encounter Start Date Encounter Closed Date Diagnosis/Indication Diagnosis SNOMED-CT Code Diagnosis ICD10 Code Diagnosis Note [id number] [facility] _[place]_M IGRATION_ DEFAULT_1 _1 , 07/30/2020 00:00:00 07/30/2020 12:28:[id number] [facility] [place] [address] [place] [address] 11/24/2020 00:00:00 11/30/2020 21:29:51 [id number] Bernard Dsouza MD [facility] [place] [address] [place] [address] 12/01/2021 00:00:00 12/01/2021 13:32:46 Health Concerns Section Related Observation LastModified by Organization Detai ls LastModified Time None Recorded Concern Status LastModified by Organization Details LastModified Time None Recorded Advance Directives Directive N: Payers Insurance Date Sequence Insurance Name Policy Number Policy Brennan Covered Member ID Brennan Member ID Guarantor Name 06/02/2022 1 [facility] [id number] Echo Andrews [id number] Echo Andrews Notes Date Note Type Note Provider Name and Address Organization Details Recorded Time 11/24/2020 text/html Anxiety, General ized DisorderReported bypatient.Associated Symptoms:no difficulty concentrating; no difficulty controlling worry; no difficulty swallowing; no anxiety; no excessive sweating; no hot flashes; no palpitations; no shortness of breath; no nausea; no diarrhea; no fatigue; no irritability; no muscle tension; no muscle aches; no trembling; no twitching; no headaches; no restlessness; no sleep disturbances Not Available [facility] Karisma Kidz [facility] 11/30/2020 21:29:51 12/01/2021 text/html Anxiety/Depressi onRep orted bypatient.Quality:hor monal Severity:denies suicidal ideations; able to maintain relationships; does not interfere with activities of daily living Duration:symptoms lasting over 2 weeks; stablizing Onset/Timing:still present Context:no major life stressors Modifying Factors:medications as directed Associated Symptoms:denies homicidal ideations; no significant weight gain; no significant weight loss; no visual/auditory hallucinations; no delusions; no shortness of breath; mood good; no anxiety; no crying spells; no panic; no isolation; sleeping well; appetite good; energy good; no apathy; maintaining functionality Not Available [facility] Karisma Kidz [facility] 12/01/2021 13:32:46 OBGyn Episode No OBEpisode recorded.
[2024-10-12 10:05] VITALS: BP 120/83; PULSE 77; RESP 16; TEMP 36.8; O2SAT 99
[2024-10-12] MEDS: ACETAMINOPHEN 500 MG TABLET 1000 MG PO (11:00)
[2024-10-12] MEDS: LACTATED RINGERS 1,000 ML 30 ML IV CONT (11:05)
--- NOTE | 2024-10-12 11:55 | WPDHPUPDATE1 ---
History and Physical Update Update Date/Time: 10/12/24 11:55 History and Physical has been reviewed, including an updated exam of the patient. There are NO changes in the patient's condition. Risks, benefits, and alternatives have been discussed and questions answered. Patient agrees to proceed with hysteroscopy, D&C, with endometrial ablation.
--- NOTE | 2024-10-12 12:23 | P.PNAN_ITS ---
Anes - Initial Pre Proc Eval Procedure: Operation Date: 10/12/24 12:00 Proposed Procedures p Hysteroscopy Dilation and Curettage with Endometrial Ablation - Zena Cabral MD Date/Time: 10/12/24 12:23 Surgeon: Zena Cabral MD Pre Op Diagnosis: abnormal uterine bleeding Patient Data Age: 44 Gender: F Height: 1.63 m Weight: 76.2 kg Last Vital Signs Temp 98.3 F 10/12/24 10:05 Pulse 77 10/12/24 10:05 Resp 16 10/12/24 10:05 BP 120/83 10/12/24 10:05 Pulse Ox 99 10/12/24 10:05 O2 Del Method Room Air 10/12/24 10:05 Allergies Allergy/AdvReac Type Severity Reaction Status Date / Time No Known Allergies Allergy Verified 10/12/24 11:16 Home Medications ?Medication ?Instructions ?Recorded ?Confirmed ?Type norethindrone acetate 1 mg-ethinyl 1 tablet PO DAILY #84 tabs 06/20/24 10/12/24 Rx estradiol 20 mcg tablet (Junel) fluoxetine 10 mg capsule 10 mg PO HS 10/08/24 10/12/24 History multivitamin 1 tablet PO DAILY 10/08/24 10/12/24 History Patient hx anesthesia problems: none Family hx anesthesia problems: none Results Review: All pre-operative results and documents have been reviewed as part of the pre- operative evaluation. [facility] Past Medical History Medical History Family attended structured diabetes education program No active medical problems Surgical History Surgical History H/O bilateral salpingectomy History of Family History Family History Mother Ovarian cancer Other Acute myocardial infarction Dementia Heart disease Hypertension Social History Social History Smoking status: Never smoker Alcohol intake: current Alcohol use details: socially Substance use: never Substance use type: does not use Lack of Transportation: No Lack of Food: Never True Current Housing: I Have Housing Concerned About Future Housing: No Difficulty Paying Gas/Electric Bills: No Difficulty Paying for Meds: No Currently Unemployed: No Education: Master's Degree or Higher Difficulty w/ Childcare or Family Care: No Living arrangements: with family Occupation/Education: 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 Overall healthy, BMI 28, pt can walk treadmill, several miles, no cp or sob. Informed Consent: The patient's anesthetic plan and its attendant risks and benefits were discussed with the patient/family/POA. Questions were solicited and answers provided to the satisfaction of the patient/family/POA.
[2024-10-12] MEDS: ceFAZolin 2 GM in SODIUM CHLORIDE 0.9% IV 50 ML 100 ML IVPB (12:44)
--- NOTE | 2024-10-12 12:55 | S_PTH ---
PATIENT: Echo Andrews LOC: [facility] U#:[id number] AGE/SX: 44/F ROOM: RE10/12/[address]: Zena Cabral MD : 1980 BED: DIS: 10/12/2024 SPEC #: [id number] RECD: 10/12/24 14:30 STATUS: JONAH REShane #: [id number] DESTINY: 10/12/24 12:[address]: Zena Cabral DEPT: [facility] Surgical RECD BY: Mady Holt ENTERED: 10/12/24 14:30 SP TYPE: Surgical OTHR DR: Carmen Escobar, PAElenaC Tissues: A - Endometrial Curettings Procedures: Hematoxylin and Eosin Stain Gross and Microscopic Level 4
--- NOTE | 2024-10-12 13:13 | P.OP_ITS ---
Procedure Note - Detailed Date of Procedure 10/12/24 Pre-op Diagnosis abnormal uterine bleeding Post-op Diagnosis Same Procedure Performed Hysteroscopy, D&C, Marilou endometrial ablation Surgeon Zena Cabral MD Anesthesia MAC Findings Uterus sounded to 8.5cm, cervix 4cm, bilateral tubal ostia visualized. Thickened endometrium noted throughout. Good hemostasis at end of case. Fluid deficit: 40cc. Description of Procedure Echo was taken to the operating room where she was placed under sedation without complications. She was then prepped and draped in the usual sterile fashion in the dorsal lithotomy position with her legs in low Cosmo stirrups. A time-out was performed and she was given Ancef 2g IV once. A bivalve speculum was placed within the vagina where the cervix was easily identified. The anterior lip of the cervix was grasped with a single-tooth tenaculum. The cervix was then serially dilated to allow for the hysteroscope. The hysteroscope was advanced into the uterine cavity with the above findings noted. A curettage was then performed until a good uterine cry was felt throughout the uterus. The Marilou endometrial ablation device was then placed within the endometrial cavity; set to 4cm. The procedure was performed per departmental buyer's instructions in the correct manner without complications. Good hemostasis was noted. All instruments were removed from the vagina. Sponge, lap, instrument, and needle counts were correct at the end of the procedure. Patient was awoken from anesthesia and taken to recovery with plans of same-day discharge home. Estimated Blood Loss 10 IV Fluids 700 Pathology Yes (endometrial curettings) Complications No immediate complications Condition Stable Disposition Same day [facility] Billing Surgery - Charge Forward: Surgery Billing
[2024-10-12 13:17] VITALS: BP 124/77; PULSE 65; RESP 17; O2SAT 100
[2024-10-12 13:45] VITALS: BP 124/71; PULSE 64; RESP 17; O2SAT 99
[2024-10-12] MEDS: oxyCODONE HCL (*CRX) 5 MG TAB IR PO (13:57)
[2024-10-12 14:15] VITALS: BP 121/69; PULSE 53; RESP 17
== END 2024-10-12 14:35 | disposition home or self-care (01) ==
PROVIDERS: PCP Physician Assistant; Visit Provider Obstetrics & Gynecology
PROC: 0U5B8ZZ Destruction of Endometrium, Via Natural or Artificial Opening Endoscopic (ICD-10-PCS; CPT 58563; principal; 2024-10-12 12:00)
DX: N93.9 Abnormal uterine and vaginal bleeding, unspecified (principal)
CPT/HCPCS: 58563; 88305; J0690; A9270; J1100; J2003; J2250; J2405; J2704; J3010; J7120